=== PATIENT | female | born 1950 | race Caucasian/White ===

== ENCOUNTER 2020-04-10 16:00 | Inpatient (IN) ==
[2020-04-10 17:29] LABS: Basophils # 0.1 10*3/uL (0.0-0.2); Basophils % 0.6 % (0.0-0.8); Eosinophils # 0.2 10*3/uL (0.0-0.87); Eosinophils % 2.5 % (0.00-10.9); Hematocrit 26.8 VOL% (35.7-47.0); Immature Granulocytes % 0.3 %; Immature Granulocytes Absolute 0.02 #; Lymphocytes # 1.3 10*3/uL (1.4-4.0); Lymphocytes % 16.9 % (21.3-54.2); Mean Corpuscular HGB Conc 33.6 GM/DL (32-36); Mean Corpuscular Volume 96.4 FL (87-102); Mean Platelet Volume 10.3 FL (9.6-12.0); Monocytes % 7.7 % (1.7-12.7); Platelet Count 226 T/CUMM (130-400); Red Blood Count 2.78 MC/CUMM (3.8-5.5); Red Cell Distribution Width 13.2 % (9.3-17.3); White Blood Count 7.9 T/CUMM (4-12)
[2020-04-10 17:40] LABS: Calcium 9.2 MG/DL (8.5-10.1); Osmolality,Calculated 316.5 MOS/KG (273-304); Potassium 4.1 MMOL/L (3.5-5.1)
[2020-04-10] MEDS ORDERED: LABETALOL 20 MG/4 ML SYRINGE IV STA (18:50)
[2020-04-10 21:14] LABS: Troponin I < 0.015 NG/ML (0.00-0.045)
[2020-04-10] MEDS ORDERED: GLUCAGON 1 MG VIAL IM PRN (23:14)
[2020-04-10] MEDS: SODIUM CHLORIDE 0.9% 1,000 ML IV SCH (23:24)
[2020-04-10] MEDS: DOCUSATE SODIUM 100 MG CAPSULE PO SCH (23:24)
[2020-04-11] MEDS: INSULIN REGULAR 100 UNIT/ML SUBCUT SCH ×5 (00:14→18:36)
[2020-04-11] MEDS: hydrALAZINE 20 MG/1 ML VIAL IV PRN ×2 (04:51→21:46)
[2020-04-11 06:12] LABS: Basophils # 0.1 10*3/uL (0.0-0.2); Basophils % 0.7 % (0.0-0.8); Eosinophils # 0.2 10*3/uL (0.0-0.87); Eosinophils % 3.1 % (0.00-10.9); Hematocrit 26.1 VOL% (35.7-47.0); Hemoglobin 8.7 GM/DL (12.0-16.0); Immature Granulocytes % 0.3 %; Immature Granulocytes Absolute 0.02 #; Lymphocytes # 1.8 10*3/uL (1.4-4.0); Lymphocytes % 25.9 % (21.3-54.2); Mean Corpuscular HGB Conc 33.3 GM/DL (32-36); Mean Corpuscular Volume 96.7 FL (87-102); Mean Platelet Volume 10.4 FL (9.6-12.0); Monocytes % 10.2 % (1.7-12.7); Neutrophils % 59.8 % (38.7-73.9); Platelet Count 223 T/CUMM (130-400); Red Cell Distribution Width 13.4 % (9.3-17.3); White Blood Count 6.8 T/CUMM (4-12)
[2020-04-11 06:27] LABS: Alanine Aminotransferase 29 U/L (13-56); Albumin 2.7 G/DL (3.4-5.0); Alkaline Phosphatase 161 U/L (45-117); Aspartate Amino Transferase 21 U/L (0-37); Bilirubin,Total < 0.39 MG/DL (0.2-1.0); Blood Urea Nitrogen 81 MG/DL (7-18); Calcium 8.9 MG/DL (8.5-10.1); Carbon Dioxide 14 MMOL/L (21-32); Estimated Glom Filtration Rate 13 ML/MIN; Glucose 268 MG/DL (74-106); HDL Cholesterol 76 MG/DL (40-60); Osmolality,Calculated 311.4 MOS/KG (273-304); Potassium 3.9 MMOL/L (3.5-5.1); Risk Ratio 2.03; Sodium 140 MMOL/L (136-145); Total Protein 6.6 G/DL (6.4-8.3); Triglycerides 84 MG/DL (2-150); VLDL CHOLESTEROL 16.8 MG/DL
[2020-04-11] MEDS ORDERED: DEXTROSE 50% 25 GM/50 ML VIAL IV PRN (08:10)
[2020-04-11] MEDS ORDERED: GLUCAGON 1 MG VIAL IM PRN (08:10)
[2020-04-11 08:15] LABS: Bacteria,Urine Occasional /HPF (Few); Bilirubin,Urine Negative (Negative); Blood, Urine Negative (Negative); Glucose,Urine (UA) >=500 mg/dL (Negative); Ketones,Urine Negative (Negative); Mucus,Urine Occasional /LPF (Occasional); Nitrite,Urine Negative (Negative); Protein,Urine 100 MG/DL; RBC,Urine 5 /HPF (0-4); Squamous Epithelial Cell,Urine Occasional /HPF (0-10); Urine Appearance Slightly Hazy (Clear); Urine Color Yellow (Yellow); Urine Specific Gravity 1.011 (1.001-1.035); Urine Urobilinogen < 2.0 EU/DL (0.2-1.0); WBC,Urine 37 /HPF (0-6)
[2020-04-11] MEDS ORDERED: INSULIN LISPRO 100 UNIT/ML SUBCUT PRN (08:15)
[2020-04-11] MEDS ORDERED: PRIMIDONE 250 MG TABLET PO SCH (09:00)
[2020-04-11] MEDS ORDERED: FUROSEMIDE 40 MG TABLET PO SCH (09:00)
[2020-04-11] MEDS ORDERED: ENOXAPARIN 30 MG/0.3 ML SYRINGE SUBCUT SCH (09:00)
[2020-04-11] MEDS: LEVOTHYROXINE 200 MCG TABLET PO SCH (10:31)
[2020-04-11] MEDS: DOCUSATE SODIUM 100 MG CAPSULE PO SCH ×2 (11:04→21:43)
[2020-04-11] MEDS: PANTOPRAZOLE 40 MG TABLET PO SCH (11:04)
[2020-04-11] MEDS: SODIUM CHLORIDE 0.9% 1,000 ML IV SCH (15:21)
[2020-04-11] MEDS: PRIMIDONE 50 MG TABLET PO SCH ×2 (15:53→21:44)
[2020-04-11] MEDS: ASPIRIN EC 81 MG TABLET PO SCH (16:02)
[2020-04-11] MEDS: CLOPIDOGREL 75 MG TABLET PO SCH (16:03)
[2020-04-11] MEDS: BOSENTAN 125 MG PO SCH (21:42)
[2020-04-11] MEDS: ATORVASTATIN 20 MG TABLET PO SCH (21:45)
[2020-04-12] MEDS: INSULIN REGULAR 100 UNIT/ML SUBCUT SCH ×6 (00:09→20:28)
[2020-04-12] MEDS: SODIUM CHLORIDE 0.9% 1,000 ML IV SCH ×2 (06:02→15:29)
[2020-04-12] MEDS: LEVOTHYROXINE 200 MCG TABLET PO SCH (06:23)
[2020-04-12] MEDS: hydrALAZINE 20 MG/1 ML VIAL IV PRN (06:23)
[2020-04-12 06:25] LABS: Basophils % 0.7 % (0.0-0.8); Eosinophils # 0.2 10*3/uL (0.0-0.87); Eosinophils % 3.7 % (0.00-10.9); Hemoglobin 7.3 GM/DL (12.0-16.0); Immature Granulocytes % 0.5 %; Immature Granulocytes Absolute 0.03 #; Lymphocytes # 1.6 10*3/uL (1.4-4.0); Lymphocytes % 26.3 % (21.3-54.2); Mean Corpuscular HGB Conc 33.2 GM/DL (32-36); Mean Corpuscular Volume 97.3 FL (87-102); Mean Platelet Volume 10.1 FL (9.6-12.0); Monocytes % 11.6 % (1.7-12.7); Neutrophils % 57.2 % (38.7-73.9); Platelet Count 187 T/CUMM (130-400); Red Blood Count 2.26 MC/CUMM (3.8-5.5); Red Cell Distribution Width 13.7 % (9.3-17.3); White Blood Count 5.9 T/CUMM (4-12)
[2020-04-12 06:35] LABS: Calcium 8.6 MG/DL (8.5-10.1); Osmolality,Calculated 314.3 MOS/KG (273-304); Potassium 4.1 MMOL/L (3.5-5.1)
[2020-04-12 07:19] LABS: Band Neutrophils 4 % (0-10); Eosinophils 4 % (0-10); Lymphocytes 27 % (20-55); Metamyelocytes 4 %; Platelet Estimate Normal; Segmented Neutrophils 50 % (50-85); Total Cells Counted 100
[2020-04-12 07:20] LABS: Anisocytosis 1+; Macrocytosis 1+
[2020-04-12] MEDS: CLOPIDOGREL 75 MG TABLET PO SCH (09:21)
[2020-04-12] MEDS: PANTOPRAZOLE 40 MG TABLET PO SCH (09:21)
[2020-04-12] MEDS: ASPIRIN EC 81 MG TABLET PO SCH (09:21)
[2020-04-12] MEDS: PRIMIDONE 50 MG TABLET PO SCH ×3 (09:21→20:27)
[2020-04-12] MEDS: DOCUSATE SODIUM 100 MG CAPSULE PO SCH ×2 (09:21→20:27)
[2020-04-12] MEDS: BOSENTAN 125 MG PO SCH ×3 (09:22→20:27)
[2020-04-12 09:44] LABS: % Iron Saturation 28.8 % (18-50)
[2020-04-12 09:53] LABS: Ferritin 53.5 ng/ml (8-252)
[2020-04-12 10:07] LABS: Folate 6.6 NG/ML (5.4-24.0)
[2020-04-12 14:11] LABS: Basophils # 0.1 10*3/uL (0.0-0.2); Basophils % 0.8 % (0.0-0.8); Eosinophils # 0.3 10*3/uL (0.0-0.87); Eosinophils % 3.9 % (0.00-10.9); Hematocrit 24.5 VOL% (35.7-47.0); Hemoglobin 8.2 GM/DL (12.0-16.0); Immature Granulocytes % 0.6 %; Immature Granulocytes Absolute 0.04 #; Lymphocytes # 1.4 10*3/uL (1.4-4.0); Mean Corpuscular HGB Conc 33.5 GM/DL (32-36); Mean Corpuscular Volume 96.8 FL (87-102); Mean Platelet Volume 10.1 FL (9.6-12.0); Monocytes % 10.7 % (1.7-12.7); Platelet Count 221 T/CUMM (130-400); Red Blood Count 2.53 MC/CUMM (3.8-5.5); Red Cell Distribution Width 13.9 % (9.3-17.3); White Blood Count 6.7 T/CUMM (4-12)
[2020-04-12] MEDS ORDERED: INSULIN REGULAR 100 UNIT/ML SUBCUT ONE (14:31)
[2020-04-12] MEDS: ATORVASTATIN 20 MG TABLET PO SCH (20:28)
[2020-04-13 05:49] LABS: Basophils # 0.1 10*3/uL (0.0-0.2); Eosinophils # 0.3 10*3/uL (0.0-0.87); Eosinophils % 4.3 % (0.00-10.9); Hemoglobin 7.9 GM/DL (12.0-16.0); Immature Granulocytes % 0.6 %; Immature Granulocytes Absolute 0.04 #; Lymphocytes % 29.1 % (21.3-54.2); Mean Corpuscular HGB Conc 32.9 GM/DL (32-36); Mean Corpuscular Volume 99.6 FL (87-102); Mean Platelet Volume 9.9 FL (9.6-12.0); Monocytes % 16.4 % (1.7-12.7); Neutrophils % 48.6 % (38.7-73.9); Platelet Count 234 T/CUMM (130-400); Red Blood Count 2.41 MC/CUMM (3.8-5.5); Red Cell Distribution Width 14.1 % (9.3-17.3); White Blood Count 6.9 T/CUMM (4-12)
[2020-04-13 06:11] LABS: Calcium 8.8 MG/DL (8.5-10.1); Osmolality,Calculated 315.3 MOS/KG (273-304); Potassium 4.5 MMOL/L (3.5-5.1)
[2020-04-13 06:47] LABS: Eosinophils 7 % (0-10); Hypochromasia 2+; Lymphocytes 32 % (20-55); Microcytosis 1+; Ovalocytes Slight; Platelet Estimate Adequate; Segmented Neutrophils 52 % (50-85); Total Cells Counted 100
[2020-04-13 08:27] LABS: Troponin I 0.023 NG/ML (0.00-0.045)
[2020-04-13] MEDS: SODIUM CHLORIDE 0.9% 1,000 ML IV SCH (09:14)
[2020-04-13] MEDS: PANTOPRAZOLE 40 MG TABLET PO SCH (09:15)
[2020-04-13] MEDS: LEVOTHYROXINE 200 MCG TABLET PO SCH (09:15)
[2020-04-13] MEDS: CLOPIDOGREL 75 MG TABLET PO SCH (09:15)
[2020-04-13] MEDS: ASPIRIN EC 81 MG TABLET PO SCH (09:15)
[2020-04-13] MEDS: INSULIN REGULAR 100 UNIT/ML SUBCUT SCH ×4 (09:15→21:46)
[2020-04-13] MEDS: BOSENTAN 125 MG PO SCH ×2 (09:16→21:45)
[2020-04-13] MEDS: PRIMIDONE 50 MG TABLET PO SCH ×3 (09:22→21:45)
[2020-04-13] MEDS: DOCUSATE SODIUM 100 MG CAPSULE PO SCH ×2 (09:22→21:47)
[2020-04-13] MEDS ORDERED: SODIUM CHLORIDE 0.9% 500 ML IV ONE (10:00)
[2020-04-13 11:32] LABS: Troponin I 0.022 NG/ML (0.00-0.045)
[2020-04-13] MEDS: cefTRIAXone 1,000 MG in SYRINGE 1 EACH IV SCH (11:39)
[2020-04-13 13:42] LABS: Troponin I 0.071 NG/ML (0.00-0.045)
[2020-04-13 13:43] LABS: ABG Base Excess -12.6 MMOL/L (-2.5-2.5); ABG HCO3 14.4 MMOL/L (20-26); ABG Oxygen Saturation 99.4 % (95-100); ABG PCO2 30.1 MM HG (35-48); ABG PH 7.259 (7.35-7.45); ABG TCO2 12.9 MMOL/L (23-27)
[2020-04-13] MEDS ORDERED: SODIUM CHLORIDE 0.9% 1,000 ML IV PRN (16:06)
[2020-04-13] MEDS ORDERED: SODIUM CHLORIDE 23.4% CONC INJ 38.5 MEQ, SODIUM BICARB INJ 100 MEQ in STERILE WATER INJ... IV SCH (17:00)
[2020-04-13] MEDS: ATORVASTATIN 20 MG TABLET PO SCH (21:45)
[2020-04-14 00:29] LABS: Basophils # 0.1 10*3/uL (0.0-0.2); Basophils % 0.7 % (0.0-0.8); Eosinophils # 0.2 10*3/uL (0.0-0.87); Eosinophils % 2.3 % (0.00-10.9); Hematocrit 23.7 VOL% (35.7-47.0); Immature Granulocytes % 0.5 %; Immature Granulocytes Absolute 0.04 #; Lymphocytes # 1.7 10*3/uL (1.4-4.0); Lymphocytes % 20.1 % (21.3-54.2); Mean Corpuscular HGB Conc 33.8 GM/DL (32-36); Mean Corpuscular Volume 96.7 FL (87-102); Mean Platelet Volume 9.9 FL (9.6-12.0); Monocytes % 10.7 % (1.7-12.7); Neutrophils % 65.7 % (38.7-73.9); Platelet Count 182 T/CUMM (130-400); Red Blood Count 2.45 MC/CUMM (3.8-5.5); Red Cell Distribution Width 14.8 % (9.3-17.3); White Blood Count 8.4 T/CUMM (4-12)
[2020-04-14 05:52] LABS: Basophils # 0.1 10*3/uL (0.0-0.2); Basophils % 0.7 % (0.0-0.8); Eosinophils # 0.3 10*3/uL (0.0-0.87); Eosinophils % 2.6 % (0.00-10.9); Hematocrit 26.5 VOL% (35.7-47.0); Hemoglobin 8.7 GM/DL (12.0-16.0); Immature Granulocytes % 0.2 %; Immature Granulocytes Absolute 0.02 #; Lymphocytes # 1.9 10*3/uL (1.4-4.0); Lymphocytes % 19.7 % (21.3-54.2); Mean Corpuscular HGB Conc 32.8 GM/DL (32-36); Mean Corpuscular Volume 98.5 FL (87-102); Mean Platelet Volume 10.2 FL (9.6-12.0); Monocytes % 8.1 % (1.7-12.7); Neutrophils % 68.7 % (38.7-73.9); Platelet Count 208 T/CUMM (130-400); Red Blood Count 2.69 MC/CUMM (3.8-5.5); White Blood Count 9.8 T/CUMM (4-12)
[2020-04-14 06:14] LABS: Calcium 8.7 MG/DL (8.5-10.1); Osmolality,Calculated 314.8 MOS/KG (273-304); Potassium 4.6 MMOL/L (3.5-5.1)
[2020-04-14] MEDS: INSULIN LISPRO 100 UNIT/ML SUBCUT SCH ×4 (08:43→21:27)
[2020-04-14] MEDS: PRIMIDONE 50 MG TABLET PO SCH ×3 (08:46→21:28)
[2020-04-14] MEDS: LEVOTHYROXINE 200 MCG TABLET PO SCH (08:46)
[2020-04-14] MEDS: CLOPIDOGREL 75 MG TABLET PO SCH (08:46)
[2020-04-14] MEDS: ASPIRIN EC 81 MG TABLET PO SCH (08:46)
[2020-04-14] MEDS: DOCUSATE SODIUM 100 MG CAPSULE PO SCH ×2 (08:46→21:28)
[2020-04-14] MEDS: BOSENTAN 125 MG PO SCH ×2 (08:47→21:28)
[2020-04-14] MEDS: PANTOPRAZOLE 40 MG TABLET PO SCH (08:55)
[2020-04-14] MEDS: cefTRIAXone 1,000 MG in SYRINGE 1 EACH IV SCH (08:59)
[2020-04-14] MEDS ORDERED: INSULIN GLARGINE 100 UNIT/ML SUBCUT SCH (09:00)
[2020-04-14] MEDS: INSULIN REGULAR 100 UNIT/ML SUBCUT SCH (10:08)
[2020-04-14 15:56] LABS: Amorphous Crystals,Urine Occasional /HPF (Few); Bilirubin,Urine Negative (Negative); Blood, Urine Small mg/dL (Negative); Glucose,Urine (UA) >=500 mg/dL (Negative); Ketones,Urine Negative (Negative); Mucus,Urine Occasional /LPF (Occasional); Nitrite,Urine Negative (Negative); Protein,Urine 100 MG/DL; RBC,Urine 4 /HPF (0-4); Squamous Epithelial Cell,Urine Occasional /HPF (0-10); Urine Appearance Slightly Hazy (Clear); Urine Color Straw (Yellow); Urine Specific Gravity 1.011 (1.001-1.035); Urine Urobilinogen < 2.0 EU/DL (0.2-1.0); WBC,Urine 16 /HPF (0-6)
[2020-04-14 16:01] LABS: Protein/Creatinine Ratio,Urine 2.9 RATIO
[2020-04-14] MEDS: SODIUM BICARB INJ 150 MEQ in DEXTROSE 5% 850 ML IV SCH (16:35)
[2020-04-14] MEDS: ATORVASTATIN 20 MG TABLET PO SCH (21:28)
[2020-04-15] MEDS: hydrALAZINE 20 MG/1 ML VIAL IV PRN (01:07)
[2020-04-15 05:21] LABS: Basophils # 0.1 10*3/uL (0.0-0.2); Basophils % 0.6 % (0.0-0.8); Eosinophils # 0.3 10*3/uL (0.0-0.87); Eosinophils % 3.2 % (0.00-10.9); Hematocrit 24.4 VOL% (35.7-47.0); Hemoglobin 8.4 GM/DL (12.0-16.0); Immature Granulocytes % 0.2 %; Immature Granulocytes Absolute 0.02 #; Lymphocytes # 1.5 10*3/uL (1.4-4.0); Lymphocytes % 17.8 % (21.3-54.2); Mean Corpuscular HGB Conc 34.4 GM/DL (32-36); Mean Corpuscular Volume 95.7 FL (87-102); Mean Platelet Volume 10.7 FL (9.6-12.0); Neutrophils % 69.2 % (38.7-73.9); Platelet Count 187 T/CUMM (130-400); Red Blood Count 2.55 MC/CUMM (3.8-5.5); Red Cell Distribution Width 14.6 % (9.3-17.3); White Blood Count 8.2 T/CUMM (4-12)
[2020-04-15 05:35] LABS: Calcium 8.4 MG/DL (8.5-10.1); Osmolality,Calculated 314.4 MOS/KG (273-304); Potassium 4.2 MMOL/L (3.5-5.1)
[2020-04-15] MEDS: LEVOTHYROXINE 200 MCG TABLET PO SCH (06:15)
[2020-04-15] MEDS: BOSENTAN 125 MG PO SCH ×2 (09:04→21:12)
[2020-04-15] MEDS: INSULIN LISPRO 100 UNIT/ML SUBCUT SCH ×4 (09:09→21:16)
[2020-04-15] MEDS: INSULIN GLARGINE 100 UNIT/ML SUBCUT SCH (09:09)
[2020-04-15] MEDS: DOCUSATE SODIUM 100 MG CAPSULE PO SCH ×2 (09:10→21:12)
[2020-04-15] MEDS: ASPIRIN EC 81 MG TABLET PO SCH (09:10)
[2020-04-15] MEDS: PRIMIDONE 50 MG TABLET PO SCH ×3 (09:10→21:14)
[2020-04-15] MEDS: CLOPIDOGREL 75 MG TABLET PO SCH (09:10)
[2020-04-15] MEDS: PANTOPRAZOLE 40 MG TABLET PO SCH (09:11)
[2020-04-15] MEDS: cefTRIAXone 1,000 MG in SYRINGE 1 EACH IV SCH (12:13)
[2020-04-15] MEDS: SODIUM BICARB INJ 150 MEQ in DEXTROSE 5% 850 ML IV SCH (12:59)
[2020-04-15 13:12] LABS: Myeloperoxidase Antibody < 0.2 U
[2020-04-15] MEDS: ATORVASTATIN 20 MG TABLET PO SCH (21:13)
[2020-04-16 05:55] LABS: Basophils % 0.5 % (0.0-0.8); Eosinophils # 0.2 10*3/uL (0.0-0.87); Eosinophils % 2.6 % (0.00-10.9); Hematocrit 24.8 VOL% (35.7-47.0); Hemoglobin 8.4 GM/DL (12.0-16.0); Immature Granulocytes % 0.2 %; Immature Granulocytes Absolute 0.02 #; Lymphocytes # 1.8 10*3/uL (1.4-4.0); Lymphocytes % 21.7 % (21.3-54.2); Mean Corpuscular HGB Conc 33.9 GM/DL (32-36); Mean Corpuscular Volume 96.5 FL (87-102); Mean Platelet Volume 10.7 FL (9.6-12.0); Monocytes % 10.2 % (1.7-12.7); Neutrophils % 64.8 % (38.7-73.9); Platelet Count 178 T/CUMM (130-400); Red Blood Count 2.57 MC/CUMM (3.8-5.5); Red Cell Distribution Width 14.3 % (9.3-17.3); White Blood Count 8.1 T/CUMM (4-12)
[2020-04-16] MEDS: LEVOTHYROXINE 200 MCG TABLET PO SCH (06:25)
[2020-04-16] MEDS: DEXTROSE 50% 25 GM/50 ML VIAL IV PRN (06:49)
[2020-04-16 07:01] LABS: Hepatitis B Core IgM Quant 0.07 Index; Hepatitis B Surface Ag Quant < 0.10 Index; Hepatitis B Surface Ag Result Negative (Negative); Hepatitis C Virus Ab Quant < 0.02 Index; Hepatitis C Virus Ab Result Negative (Negative)
[2020-04-16] MEDS: INSULIN LISPRO 100 UNIT/ML SUBCUT SCH ×4 (09:27→22:26)
[2020-04-16] MEDS: SODIUM BICARB INJ 150 MEQ in DEXTROSE 5% 850 ML IV SCH (09:29)
[2020-04-16] MEDS: INSULIN GLARGINE 100 UNIT/ML SUBCUT SCH (09:31)
[2020-04-16] MEDS: cefTRIAXone 1,000 MG in SYRINGE 1 EACH IV SCH (09:31)
[2020-04-16] MEDS: DOCUSATE SODIUM 100 MG CAPSULE PO SCH ×2 (09:32→22:24)
[2020-04-16] MEDS: CLOPIDOGREL 75 MG TABLET PO SCH (09:32)
[2020-04-16] MEDS: PANTOPRAZOLE 40 MG TABLET PO SCH (09:32)
[2020-04-16] MEDS: ASPIRIN EC 81 MG TABLET PO SCH (09:32)
[2020-04-16] MEDS: PRIMIDONE 50 MG TABLET PO SCH ×3 (09:33→22:24)
[2020-04-16] MEDS: BOSENTAN 125 MG PO SCH ×2 (09:34→22:25)
[2020-04-16] MEDS: ATORVASTATIN 20 MG TABLET PO SCH (22:24)
[2020-04-17] MEDS: SODIUM BICARB INJ 150 MEQ in DEXTROSE 5% 850 ML IV SCH (05:08)
[2020-04-17 05:59] LABS: Basophils % 0.6 % (0.0-0.8); Eosinophils # 0.2 10*3/uL (0.0-0.87); Eosinophils % 3.1 % (0.00-10.9); Hematocrit 24.4 VOL% (35.7-47.0); Hemoglobin 8.2 GM/DL (12.0-16.0); Immature Granulocytes % 0.3 %; Immature Granulocytes Absolute 0.02 #; Lymphocytes # 1.4 10*3/uL (1.4-4.0); Lymphocytes % 19.5 % (21.3-54.2); Mean Corpuscular HGB Conc 33.6 GM/DL (32-36); Mean Corpuscular Volume 96.8 FL (87-102); Mean Platelet Volume 10.7 FL (9.6-12.0); Monocytes % 10.2 % (1.7-12.7); Neutrophils % 66.3 % (38.7-73.9); Platelet Count 163 T/CUMM (130-400); Red Blood Count 2.52 MC/CUMM (3.8-5.5); Red Cell Distribution Width 14.1 % (9.3-17.3)
[2020-04-17] MEDS: LEVOTHYROXINE 200 MCG TABLET PO SCH (06:07)
[2020-04-17 06:21] LABS: Calcium 7.9 MG/DL (8.5-10.1); Osmolality,Calculated 315.3 MOS/KG (273-304)
[2020-04-17] MEDS: INSULIN LISPRO 100 UNIT/ML SUBCUT SCH ×4 (08:19→22:20)
[2020-04-17] MEDS: INSULIN GLARGINE 100 UNIT/ML SUBCUT SCH (08:19)
[2020-04-17] MEDS: CLOPIDOGREL 75 MG TABLET PO SCH (09:31)
[2020-04-17] MEDS: DOCUSATE SODIUM 100 MG CAPSULE PO SCH ×2 (09:31→22:21)
[2020-04-17] MEDS: ASPIRIN EC 81 MG TABLET PO SCH (09:31)
[2020-04-17] MEDS: PRIMIDONE 50 MG TABLET PO SCH ×3 (09:32→22:29)
[2020-04-17] MEDS: PANTOPRAZOLE 40 MG TABLET PO SCH (09:32)
[2020-04-17] MEDS: BOSENTAN 125 MG PO SCH ×2 (09:33→22:21)
[2020-04-17] MEDS: cefTRIAXone 1,000 MG in SYRINGE 1 EACH IV SCH (09:33)
[2020-04-17] MEDS: hydrALAZINE 10 MG TABLET PO SCH ×3 (09:37→22:21)
[2020-04-17] MEDS: ATORVASTATIN 20 MG TABLET PO SCH (22:20)
[2020-04-18] MEDS: SODIUM BICARB INJ 150 MEQ in DEXTROSE 5% 850 ML IV SCH (02:23)
[2020-04-18 05:52] LABS: Calcium 7.7 MG/DL (8.5-10.1); Potassium 4.3 MMOL/L (3.5-5.1)
[2020-04-18 06:03] LABS: Basophils # 0.1 10*3/uL (0.0-0.2); Eosinophils # 0.2 10*3/uL (0.0-0.87); Hematocrit 23.2 VOL% (35.7-47.0); Hemoglobin 7.6 GM/DL (12.0-16.0); Immature Granulocytes % 0.2 %; Immature Granulocytes Absolute 0.01 #; Lymphocytes # 1.7 10*3/uL (1.4-4.0); Lymphocytes % 27.6 % (21.3-54.2); Mean Corpuscular HGB Conc 32.8 GM/DL (32-36); Mean Corpuscular Volume 97.9 FL (87-102); Mean Platelet Volume 10.7 FL (9.6-12.0); Neutrophils % 56.2 % (38.7-73.9); Platelet Count 175 T/CUMM (130-400); Red Blood Count 2.37 MC/CUMM (3.8-5.5); Red Cell Distribution Width 13.7 % (9.3-17.3); White Blood Count 6.2 T/CUMM (4-12)
[2020-04-18] MEDS: LEVOTHYROXINE 200 MCG TABLET PO SCH (06:23)
[2020-04-18 08:34] LABS: Eosinophils 3 % (0-10); Lymphocytes 18 % (20-55); Platelet Estimate Adequate; Polychromasia Slight; Segmented Neutrophils 75 % (50-85); Total Cells Counted 100
[2020-04-18] MEDS ORDERED: EPOETIN ALFA 2,000 UNIT/1 ML VIAL SUBCUT SCH (09:00)
[2020-04-18] MEDS: hydrALAZINE 10 MG TABLET PO SCH ×3 (09:10→21:48)
[2020-04-18] MEDS: ASPIRIN EC 81 MG TABLET PO SCH (09:10)
[2020-04-18] MEDS: DOCUSATE SODIUM 100 MG CAPSULE PO SCH ×2 (09:11→21:48)
[2020-04-18] MEDS: INSULIN GLARGINE 100 UNIT/ML SUBCUT SCH (09:11)
[2020-04-18] MEDS: CLOPIDOGREL 75 MG TABLET PO SCH (09:11)
[2020-04-18] MEDS: PANTOPRAZOLE 40 MG TABLET PO SCH (09:11)
[2020-04-18] MEDS: INSULIN LISPRO 100 UNIT/ML SUBCUT SCH ×4 (09:12→21:47)
[2020-04-18] MEDS: BOSENTAN 125 MG PO SCH ×2 (09:13→21:49)
[2020-04-18] MEDS: cefTRIAXone 1,000 MG in SYRINGE 1 EACH IV SCH (09:16)
[2020-04-18] MEDS: PRIMIDONE 50 MG TABLET PO SCH ×3 (12:32→21:48)
[2020-04-18] MEDS: EPOETIN ALFA-EPBX 2,000 UNIT/ML VIAL SUBCUT SCH (14:53)
[2020-04-18] MEDS ORDERED: SODIUM CHLORIDE 0.9% 1,000 ML IV PRN (20:53)
[2020-04-18] MEDS: ATORVASTATIN 20 MG TABLET PO SCH (21:48)
[2020-04-19] MEDS: ACETAMINOPHEN 325 MG TABLET PO PRN (02:10)
[2020-04-19] MEDS: INSULIN LISPRO 100 UNIT/ML SUBCUT SCH ×4 (08:38→21:29)
[2020-04-19] MEDS: PANTOPRAZOLE 40 MG TABLET PO SCH (09:22)
[2020-04-19] MEDS: DOCUSATE SODIUM 100 MG CAPSULE PO SCH ×2 (09:22→21:23)
[2020-04-19] MEDS: LEVOTHYROXINE 200 MCG TABLET PO SCH (09:22)
[2020-04-19] MEDS: ASPIRIN EC 81 MG TABLET PO SCH (09:22)
[2020-04-19] MEDS: PRIMIDONE 50 MG TABLET PO SCH ×3 (09:22→21:43)
[2020-04-19] MEDS: hydrALAZINE 10 MG TABLET PO SCH ×3 (09:22→21:23)
[2020-04-19] MEDS: CLOPIDOGREL 75 MG TABLET PO SCH (09:23)
[2020-04-19] MEDS: BOSENTAN 125 MG PO SCH ×2 (09:23→21:30)
[2020-04-19] MEDS: cefTRIAXone 1,000 MG in SYRINGE 1 EACH IV SCH (09:23)
[2020-04-19] MEDS: INSULIN GLARGINE 100 UNIT/ML SUBCUT SCH (09:23)
[2020-04-19 09:46] LABS: Basophils # 0.1 10*3/uL (0.0-0.2); Basophils % 1.2 % (0.0-0.8); Eosinophils # 0.2 10*3/uL (0.0-0.87); Eosinophils % 2.7 % (0.00-10.9); Hematocrit 29.8 VOL% (35.7-47.0); Hemoglobin 9.7 GM/DL (12.0-16.0); Immature Granulocytes % 0.4 %; Immature Granulocytes Absolute 0.03 #; Lymphocytes # 1.6 10*3/uL (1.4-4.0); Lymphocytes % 23.2 % (21.3-54.2); Mean Corpuscular HGB Conc 32.6 GM/DL (32-36); Mean Corpuscular Volume 97.7 FL (87-102); Mean Platelet Volume 10.5 FL (9.6-12.0); Monocytes % 9.7 % (1.7-12.7); Neutrophils % 62.8 % (38.7-73.9); Platelet Count 207 T/CUMM (130-400); Red Blood Count 3.05 MC/CUMM (3.8-5.5); Red Cell Distribution Width 13.8 % (9.3-17.3); White Blood Count 6.8 T/CUMM (4-12)
[2020-04-19 10:09] LABS: Calcium 8.1 MG/DL (8.5-10.1); Osmolality,Calculated 316.5 MOS/KG (273-304); Potassium 4.9 MMOL/L (3.5-5.1)
[2020-04-19 11:09] LABS: Band Neutrophils 2 % (0-10); Eosinophils 5 % (0-10); Lymphocytes 21 % (20-55); Platelet Estimate Normal; Segmented Neutrophils 62 % (50-85); Total Cells Counted 100
[2020-04-19 11:10] LABS: Anisocytosis 1+; Macrocytosis Slight
[2020-04-19] MEDS: ATORVASTATIN 20 MG TABLET PO SCH (21:23)
[2020-04-20] MEDS: ACETAMINOPHEN 325 MG TABLET PO PRN ×2 (00:01→17:32)
[2020-04-20 05:56] LABS: Basophils % 0.7 % (0.0-0.8); Eosinophils # 0.2 10*3/uL (0.0-0.87); Eosinophils % 3.2 % (0.00-10.9); Hematocrit 27.8 VOL% (35.7-47.0); Hemoglobin 8.8 GM/DL (12.0-16.0); Immature Granulocytes % 0.2 %; Immature Granulocytes Absolute 0.01 #; Lymphocytes # 1.2 10*3/uL (1.4-4.0); Lymphocytes % 19.5 % (21.3-54.2); Mean Corpuscular HGB Conc 31.7 GM/DL (32-36); Mean Corpuscular Volume 98.9 FL (87-102); Monocytes % 11.2 % (1.7-12.7); Neutrophils % 65.2 % (38.7-73.9); Platelet Count 203 T/CUMM (130-400); Red Blood Count 2.81 MC/CUMM (3.8-5.5); Red Cell Distribution Width 13.6 % (9.3-17.3)
[2020-04-20 06:25] LABS: Calcium 7.7 MG/DL (8.5-10.1); Osmolality,Calculated 313.3 MOS/KG (273-304); Potassium 4.9 MMOL/L (3.5-5.1)
[2020-04-20] MEDS: LEVOTHYROXINE 200 MCG TABLET PO SCH (08:54)
[2020-04-20] MEDS: hydrALAZINE 25 MG TABLET PO SCH ×3 (08:55→21:00)
[2020-04-20] MEDS: BOSENTAN 125 MG PO SCH ×2 (08:55→21:00)
[2020-04-20] MEDS: ASPIRIN EC 81 MG TABLET PO SCH (08:55)
[2020-04-20] MEDS: CLOPIDOGREL 75 MG TABLET PO SCH (08:55)
[2020-04-20] MEDS: DOCUSATE SODIUM 100 MG CAPSULE PO SCH ×2 (08:55→21:00)
[2020-04-20] MEDS: PANTOPRAZOLE 40 MG TABLET PO SCH (08:55)
[2020-04-20] MEDS: INSULIN GLARGINE 100 UNIT/ML SUBCUT SCH (08:55)
[2020-04-20] MEDS: PRIMIDONE 50 MG TABLET PO SCH ×3 (08:55→21:00)
[2020-04-20] MEDS: INSULIN LISPRO 100 UNIT/ML SUBCUT SCH ×4 (08:56→21:07)
[2020-04-20] MEDS: cefTRIAXone 1,000 MG in SYRINGE 1 EACH IV SCH (09:01)
[2020-04-20] MEDS ORDERED: FUROSEMIDE 40 MG/4 ML VIAL IV ONE (13:20)
[2020-04-20] MEDS: ONDANSETRON 4 MG/2 ML VIAL IV PRN (17:32)
[2020-04-20] MEDS: hydrALAZINE 20 MG/1 ML VIAL IV PRN (17:33)
[2020-04-20] MEDS ORDERED: PROMETHAZINE 25 MG/1 ML VIAL IM PRN (19:28)
[2020-04-20] MEDS: traMADol 50 MG TABLET PO PRN (20:59)
[2020-04-20] MEDS: ATORVASTATIN 20 MG TABLET PO SCH (21:00)
[2020-04-21] MEDS: ONDANSETRON 4 MG/2 ML VIAL IV PRN ×2 (02:50→10:31)
[2020-04-21] MEDS: hydrALAZINE 20 MG/1 ML VIAL IV PRN (02:53)
[2020-04-21] MEDS: traMADol 50 MG TABLET PO PRN (04:26)
[2020-04-21 05:44] LABS: Basophils # 0.1 10*3/uL (0.0-0.2); Basophils % 0.6 % (0.0-0.8); Eosinophils # 0.1 10*3/uL (0.0-0.87); Eosinophils % 1.8 % (0.00-10.9); Hematocrit 28.1 VOL% (35.7-47.0); Hemoglobin 9.1 GM/DL (12.0-16.0); Immature Granulocytes % 0.1 %; Immature Granulocytes Absolute 0.01 #; Lymphocytes # 1.2 10*3/uL (1.4-4.0); Lymphocytes % 15.5 % (21.3-54.2); Mean Corpuscular HGB Conc 32.4 GM/DL (32-36); Mean Corpuscular Volume 98.6 FL (87-102); Mean Platelet Volume 10.6 FL (9.6-12.0); Monocytes % 9.5 % (1.7-12.7); Neutrophils % 72.5 % (38.7-73.9); Platelet Count 233 T/CUMM (130-400); Red Blood Count 2.85 MC/CUMM (3.8-5.5); Red Cell Distribution Width 13.4 % (9.3-17.3); White Blood Count 7.9 T/CUMM (4-12)
[2020-04-21 06:19] LABS: Calcium 7.8 MG/DL (8.5-10.1); Osmolality,Calculated 313.5 MOS/KG (273-304); Potassium 5.4 MMOL/L (3.5-5.1)
[2020-04-21] MEDS: LEVOTHYROXINE 200 MCG TABLET PO SCH (06:29)
[2020-04-21] MEDS: LIDOCAINE 5% PATCH TRANSDERM SCH (10:16)
[2020-04-21] MEDS: DOCUSATE SODIUM 100 MG CAPSULE PO SCH ×2 (10:20→22:33)
[2020-04-21] MEDS: hydrALAZINE 25 MG TABLET PO SCH ×3 (10:20→22:34)
[2020-04-21] MEDS: CLOPIDOGREL 75 MG TABLET PO SCH (10:20)
[2020-04-21] MEDS: ASPIRIN EC 81 MG TABLET PO SCH (10:20)
[2020-04-21] MEDS: PANTOPRAZOLE 40 MG TABLET PO SCH (10:20)
[2020-04-21] MEDS: BOSENTAN 125 MG PO SCH ×2 (10:21→22:33)
[2020-04-21] MEDS: cefTRIAXone 1,000 MG in SYRINGE 1 EACH IV SCH (10:22)
[2020-04-21] MEDS: INSULIN GLARGINE 100 UNIT/ML SUBCUT SCH (10:22)
[2020-04-21] MEDS: INSULIN LISPRO 100 UNIT/ML SUBCUT SCH ×4 (10:32→22:34)
[2020-04-21] MEDS: PRIMIDONE 50 MG TABLET PO SCH ×3 (11:14→22:33)
[2020-04-21] MEDS: EPOETIN ALFA-EPBX 2,000 UNIT/ML VIAL SUBCUT SCH (12:08)
[2020-04-21] MEDS ORDERED: FUROSEMIDE 40 MG/4 ML VIAL IV ONE (14:51)
[2020-04-21 21:25] LABS: Bacteria,Urine Occasional /HPF (Few); Bilirubin,Urine Negative (Negative); Blood, Urine Moderate mg/dL (Negative); Glucose,Urine (UA) >=500 mg/dL (Negative); Ketones,Urine Negative (Negative); Nitrite,Urine Negative (Negative); Protein,Urine 100 MG/DL; RBC,Urine 48 /HPF (0-4); Squamous Epithelial Cell,Urine Occasional /HPF (0-10); Urine Appearance CLEAR (Clear); Urine Color Straw (Yellow); Urine Specific Gravity 1.009 (1.001-1.035); Urine Urobilinogen < 2.0 EU/DL (0.2-1.0); WBC,Urine 5 /HPF (0-6)
[2020-04-21] MEDS: ATORVASTATIN 20 MG TABLET PO SCH (22:34)
[2020-04-22] MEDS: ACETAMINOPHEN 325 MG TABLET PO PRN (04:25)
[2020-04-22] MEDS: LEVOTHYROXINE 200 MCG TABLET PO SCH (06:01)
[2020-04-22 06:17] LABS: Basophils # 0.1 10*3/uL (0.0-0.2); Basophils % 0.8 % (0.0-0.8); Eosinophils # 0.2 10*3/uL (0.0-0.87); Eosinophils % 2.4 % (0.00-10.9); Hematocrit 28.4 VOL% (35.7-47.0); Hemoglobin 9.3 GM/DL (12.0-16.0); Immature Granulocytes % 0.5 %; Immature Granulocytes Absolute 0.04 #; Lymphocytes # 1.7 10*3/uL (1.4-4.0); Lymphocytes % 19.7 % (21.3-54.2); Mean Corpuscular HGB Conc 32.7 GM/DL (32-36); Mean Corpuscular Volume 98.3 FL (87-102); Mean Platelet Volume 10.4 FL (9.6-12.0); Monocytes % 10.6 % (1.7-12.7); Platelet Count 233 T/CUMM (130-400); Red Blood Count 2.89 MC/CUMM (3.8-5.5); Red Cell Distribution Width 13.5 % (9.3-17.3); White Blood Count 8.7 T/CUMM (4-12)
[2020-04-22 06:35] LABS: Calcium 8.2 MG/DL (8.5-10.1); Osmolality,Calculated 307.5 MOS/KG (273-304); Potassium 5.8 MMOL/L (3.5-5.1)
[2020-04-22 06:55] LABS: Anisocytosis 1+; Band Neutrophils 3 % (0-10); Eosinophils 3 % (0-10); Lymphocytes 23 % (20-55); Platelet Estimate Normal; Segmented Neutrophils 63 % (50-85); Total Cells Counted 100
[2020-04-22 06:56] LABS: Macrocytosis 1+
[2020-04-22] MEDS: DEXTROSE 50% 25 GM/50 ML VIAL IV PRN (08:25)
[2020-04-22] MEDS: cefTRIAXone 1,000 MG in SYRINGE 1 EACH IV SCH (10:12)
[2020-04-22] MEDS: LIDOCAINE 5% PATCH TRANSDERM SCH (10:17)
[2020-04-22] MEDS: INSULIN LISPRO 100 UNIT/ML SUBCUT SCH ×4 (10:20→22:28)
[2020-04-22] MEDS: INSULIN GLARGINE 100 UNIT/ML SUBCUT SCH (10:25)
[2020-04-22] MEDS ORDERED: HEPARIN 5,000 UNIT/1 ML VIAL ONE (11:48)
[2020-04-22] MEDS ORDERED: BUPIVACAINE 0.5% 50 ML VIAL ONE (11:48)
[2020-04-22] MEDS ORDERED: LIDOCAINE 2%/EPI 20 ML VIAL ONE (11:49)
[2020-04-22] MEDS ORDERED: TISSUE ADHESIVE 1 EACH APPLICATOR TOP ONE (11:50)
[2020-04-22] MEDS ORDERED: LIDOCAINE MPF 1% /EPI 30 ML VIAL ONE (12:29)
[2020-04-22] MEDS ORDERED: fentaNYL 100 MCG/2 ML VIAL ONE (12:51)
[2020-04-22] MEDS ORDERED: ceFAZolin 1,000 MG VIAL ONE (13:03)
[2020-04-22] MEDS ORDERED: propofoL 200 MG/20 ML VIAL IV ONE (13:06)
[2020-04-22] MEDS ORDERED: LIDOCAINE 2% 5 ML VIAL ONE (13:06)
[2020-04-22] MEDS ORDERED: SODIUM CHLORIDE 0.9% 250 ML IV ONE (13:20)
[2020-04-22] MEDS: DOCUSATE SODIUM 100 MG CAPSULE PO SCH ×2 (15:01→21:48)
[2020-04-22] MEDS: BOSENTAN 125 MG PO SCH ×2 (15:01→21:49)
[2020-04-22] MEDS: PRIMIDONE 50 MG TABLET PO SCH ×3 (15:02→21:49)
[2020-04-22] MEDS: CLOPIDOGREL 75 MG TABLET PO SCH (17:55)
[2020-04-22] MEDS: ASPIRIN EC 81 MG TABLET PO SCH (17:55)
[2020-04-22] MEDS: PANTOPRAZOLE 40 MG TABLET PO SCH (17:56)
[2020-04-22] MEDS ORDERED: HEPARIN 10,000 UNIT/10 ML VIAL IV SCH (19:30)
[2020-04-22] MEDS: ATORVASTATIN 20 MG TABLET PO SCH (21:49)
[2020-04-23] MEDS: ACETAMINOPHEN 325 MG TABLET PO PRN (04:04)
[2020-04-23] MEDS ORDERED: diphenhydrAMINE CAP 25 MG CAPSULE PO PRN (05:52)
[2020-04-23 06:03] LABS: Basophils # 0.1 10*3/uL (0.0-0.2); Basophils % 0.9 % (0.0-0.8); Eosinophils # 0.2 10*3/uL (0.0-0.87); Eosinophils % 2.6 % (0.00-10.9); Hematocrit 28.5 VOL% (35.7-47.0); Hemoglobin 9.1 GM/DL (12.0-16.0); Immature Granulocytes % 0.4 %; Immature Granulocytes Absolute 0.03 #; Lymphocytes # 1.2 10*3/uL (1.4-4.0); Lymphocytes % 16.9 % (21.3-54.2); Mean Corpuscular HGB Conc 31.9 GM/DL (32-36); Mean Corpuscular Volume 99.7 FL (87-102); Monocytes % 12.4 % (1.7-12.7); Neutrophils % 66.8 % (38.7-73.9); Platelet Count 203 T/CUMM (130-400); Red Blood Count 2.86 MC/CUMM (3.8-5.5); Red Cell Distribution Width 13.3 % (9.3-17.3); White Blood Count 6.9 T/CUMM (4-12)
[2020-04-23 06:12] LABS: Calcium 8.1 MG/DL (8.5-10.1); Osmolality,Calculated 307.5 MOS/KG (273-304); Potassium 5.3 MMOL/L (3.5-5.1)
[2020-04-23] MEDS: ASPIRIN EC 81 MG TABLET PO SCH (09:00)
[2020-04-23] MEDS: traMADol 50 MG TABLET PO PRN (09:01)
[2020-04-23] MEDS: CLOPIDOGREL 75 MG TABLET PO SCH (09:01)
[2020-04-23] MEDS: PRIMIDONE 50 MG TABLET PO SCH ×3 (09:01→21:57)
[2020-04-23] MEDS: LEVOTHYROXINE 200 MCG TABLET PO SCH (09:01)
[2020-04-23] MEDS: DOCUSATE SODIUM 100 MG CAPSULE PO SCH ×2 (09:01→21:40)
[2020-04-23] MEDS: PANTOPRAZOLE 40 MG TABLET PO SCH (09:02)
[2020-04-23] MEDS: BOSENTAN 125 MG PO SCH ×2 (09:04→21:58)
[2020-04-23] MEDS: INSULIN LISPRO 100 UNIT/ML SUBCUT SCH ×4 (09:05→21:41)
[2020-04-23] MEDS: cefTRIAXone 1,000 MG in SYRINGE 1 EACH IV SCH (09:06)
[2020-04-23] MEDS: INSULIN GLARGINE 100 UNIT/ML SUBCUT SCH (09:06)
[2020-04-23] MEDS: LIDOCAINE 5% PATCH TRANSDERM SCH (09:08)
[2020-04-23] MEDS: EPOETIN ALFA-EPBX 2,000 UNIT/ML VIAL SUBCUT SCH (15:29)
[2020-04-23] MEDS: ATORVASTATIN 20 MG TABLET PO SCH (21:33)
[2020-04-24 07:10] LABS: Basophils # 0.1 10*3/uL (0.0-0.2); Basophils % 0.8 % (0.0-0.8); Eosinophils # 0.2 10*3/uL (0.0-0.87); Hematocrit 27.1 VOL% (35.7-47.0); Hemoglobin 8.3 GM/DL (12.0-16.0); Immature Granulocytes % 0.3 %; Immature Granulocytes Absolute 0.02 #; Lymphocytes # 1.6 10*3/uL (1.4-4.0); Lymphocytes % 25.5 % (21.3-54.2); Mean Corpuscular HGB Conc 30.6 GM/DL (32-36); Mean Corpuscular Volume 103.4 FL (87-102); Mean Platelet Volume 10.9 FL (9.6-12.0); Monocytes % 15.2 % (1.7-12.7); Neutrophils % 55.2 % (38.7-73.9); Platelet Count 197 T/CUMM (130-400); Red Blood Count 2.62 MC/CUMM (3.8-5.5); Red Cell Distribution Width 13.1 % (9.3-17.3); White Blood Count 6.4 T/CUMM (4-12)
[2020-04-24] MEDS: LEVOTHYROXINE 200 MCG TABLET PO SCH (07:17)
[2020-04-24 07:34] LABS: Eosinophils 4 % (0-10); Hypochromasia 1+; Lymphocytes 28 % (20-55); Segmented Neutrophils 61 % (50-85); Total Cells Counted 100
[2020-04-24 07:35] LABS: Macrocytosis 1+; Platelet Estimate Adequate
[2020-04-24 07:44] LABS: Calcium 7.7 MG/DL (8.5-10.1)
[2020-04-24] MEDS: INSULIN LISPRO 100 UNIT/ML SUBCUT SCH ×4 (08:36→23:04)
[2020-04-24] MEDS: PRIMIDONE 50 MG TABLET PO SCH ×3 (08:37→23:04)
[2020-04-24] MEDS: ASPIRIN EC 81 MG TABLET PO SCH (08:38)
[2020-04-24] MEDS: DOCUSATE SODIUM 100 MG CAPSULE PO SCH ×2 (08:38→23:03)
[2020-04-24] MEDS: BOSENTAN 125 MG PO SCH ×2 (08:38→23:04)
[2020-04-24] MEDS: INSULIN GLARGINE 100 UNIT/ML SUBCUT SCH (08:38)
[2020-04-24] MEDS: CLOPIDOGREL 75 MG TABLET PO SCH (08:38)
[2020-04-24] MEDS: PANTOPRAZOLE 40 MG TABLET PO SCH (08:38)
[2020-04-24] MEDS: LIDOCAINE 5% PATCH TRANSDERM SCH (08:39)
[2020-04-24] MEDS: cefTRIAXone 1,000 MG in SYRINGE 1 EACH IV SCH (09:00)
[2020-04-24] MEDS: ATORVASTATIN 20 MG TABLET PO SCH (23:04)
[2020-04-25 06:18] LABS: Basophils # 0.1 10*3/uL (0.0-0.2); Basophils % 1.1 % (0.0-0.8); Eosinophils # 0.2 10*3/uL (0.0-0.87); Eosinophils % 2.4 % (0.00-10.9); Hematocrit 28.5 VOL% (35.7-47.0); Immature Granulocytes % 0.6 %; Immature Granulocytes Absolute 0.04 #; Lymphocytes # 1.5 10*3/uL (1.4-4.0); Lymphocytes % 22.1 % (21.3-54.2); Mean Corpuscular HGB Conc 31.6 GM/DL (32-36); Mean Corpuscular Volume 99.7 FL (87-102); Mean Platelet Volume 10.8 FL (9.6-12.0); Monocytes % 12.7 % (1.7-12.7); Neutrophils % 61.1 % (38.7-73.9); Platelet Count 201 T/CUMM (130-400); Red Blood Count 2.86 MC/CUMM (3.8-5.5); White Blood Count 6.6 T/CUMM (4-12)
[2020-04-25] MEDS: LEVOTHYROXINE 200 MCG TABLET PO SCH (06:34)
[2020-04-25 06:42] LABS: Hypochromasia 1+; Microcytosis 1+; Platelet Estimate Adequate
[2020-04-25] MEDS: DOCUSATE SODIUM 100 MG CAPSULE PO SCH ×2 (09:21→20:44)
[2020-04-25] MEDS: CLOPIDOGREL 75 MG TABLET PO SCH (09:21)
[2020-04-25] MEDS: ASPIRIN EC 81 MG TABLET PO SCH (09:21)
[2020-04-25] MEDS: PANTOPRAZOLE 40 MG TABLET PO SCH (09:22)
[2020-04-25] MEDS: BOSENTAN 125 MG PO SCH ×2 (09:22→20:46)
[2020-04-25] MEDS: INSULIN GLARGINE 100 UNIT/ML SUBCUT SCH (09:29)
[2020-04-25] MEDS: LIDOCAINE 5% PATCH TRANSDERM SCH (09:30)
[2020-04-25] MEDS: EPOETIN ALFA-EPBX 2,000 UNIT/ML VIAL SUBCUT SCH (09:35)
[2020-04-25] MEDS: INSULIN LISPRO 100 UNIT/ML SUBCUT SCH ×4 (09:36→20:45)
[2020-04-25] MEDS: PRIMIDONE 50 MG TABLET PO SCH ×3 (09:37→20:43)
[2020-04-25] MEDS: cefTRIAXone 1,000 MG in SYRINGE 1 EACH IV SCH (10:51)
[2020-04-25 12:45] LABS: Basophils % 0.6 % (0.0-0.8); Eosinophils # 0.1 10*3/uL (0.0-0.87); Eosinophils % 1.7 % (0.00-10.9); Hematocrit 33.1 VOL% (35.7-47.0); Hemoglobin 10.1 GM/DL (12.0-16.0); Immature Granulocytes % 0.6 %; Immature Granulocytes Absolute 0.04 #; Lymphocytes # 1.3 10*3/uL (1.4-4.0); Lymphocytes % 19.2 % (21.3-54.2); Mean Corpuscular HGB Conc 30.5 GM/DL (32-36); Mean Corpuscular Volume 103.8 FL (87-102); Monocytes % 6.5 % (1.7-12.7); Neutrophils % 71.4 % (38.7-73.9); Platelet Count 251 T/CUMM (130-400); Red Blood Count 3.19 MC/CUMM (3.8-5.5); White Blood Count 6.9 T/CUMM (4-12)
[2020-04-25 14:19] LABS: Calcium 8.3 MG/DL (8.5-10.1); Osmolality,Calculated 295.7 MOS/KG (273-304); Potassium 4.5 MMOL/L (3.5-5.1)
[2020-04-25] MEDS: hydrALAZINE 20 MG/1 ML VIAL IV PRN (18:32)
[2020-04-25] MEDS: ATORVASTATIN 20 MG TABLET PO SCH (20:44)
[2020-04-26] MEDS: LEVOTHYROXINE 200 MCG TABLET PO SCH (06:27)
[2020-04-26 08:38] LABS: Basophils # 0.1 10*3/uL (0.0-0.2); Basophils % 0.7 % (0.0-0.8); Eosinophils # 0.2 10*3/uL (0.0-0.87); Eosinophils % 2.8 % (0.00-10.9); Hematocrit 32.2 VOL% (35.7-47.0); Hemoglobin 9.9 GM/DL (12.0-16.0); Immature Granulocytes % 0.5 %; Immature Granulocytes Absolute 0.04 #; Lymphocytes # 2.7 10*3/uL (1.4-4.0); Lymphocytes % 31.8 % (21.3-54.2); Mean Corpuscular HGB Conc 30.7 GM/DL (32-36); Mean Corpuscular Volume 102.9 FL (87-102); Mean Platelet Volume 10.4 FL (9.6-12.0); Monocytes % 9.4 % (1.7-12.7); Neutrophils % 54.8 % (38.7-73.9); Platelet Count 304 T/CUMM (130-400); Red Blood Count 3.13 MC/CUMM (3.8-5.5); White Blood Count 8.6 T/CUMM (4-12)
[2020-04-26 08:57] LABS: Calcium 8.3 MG/DL (8.5-10.1); Osmolality,Calculated 288.7 MOS/KG (273-304); Potassium 4.6 MMOL/L (3.5-5.1)
[2020-04-26 08:59] LABS: Atypical Lymphocytes Few; Band Neutrophils 1 % (0-10); Eosinophils 3 % (0-10); Hypochromasia 1+; Lymphocytes 25 % (20-55); Microcytosis 1+; Segmented Neutrophils 62 % (50-85); Total Cells Counted 100
[2020-04-26 09:00] LABS: Platelet Estimate Normal
[2020-04-26] MEDS: INSULIN GLARGINE 100 UNIT/ML SUBCUT SCH (10:16)
[2020-04-26] MEDS: cefTRIAXone 1,000 MG in SYRINGE 1 EACH IV SCH (10:17)
[2020-04-26] MEDS: LIDOCAINE 5% PATCH TRANSDERM SCH (10:20)
[2020-04-26] MEDS: INSULIN LISPRO 100 UNIT/ML SUBCUT SCH ×4 (11:30→21:12)
[2020-04-26] MEDS: PRIMIDONE 50 MG TABLET PO SCH ×3 (13:46→20:16)
[2020-04-26] MEDS: DOCUSATE SODIUM 100 MG CAPSULE PO SCH ×2 (15:15→20:16)
[2020-04-26] MEDS: BOSENTAN 125 MG PO SCH ×2 (15:16→20:17)
[2020-04-26] MEDS: PANTOPRAZOLE 40 MG TABLET PO SCH (16:47)
[2020-04-26] MEDS: ASPIRIN EC 81 MG TABLET PO SCH (16:47)
[2020-04-26] MEDS: CLOPIDOGREL 75 MG TABLET PO SCH (16:48)
[2020-04-26] MEDS: cloNIDine 0.1 MG TABLET PO SCH (20:15)
[2020-04-26] MEDS: ATORVASTATIN 20 MG TABLET PO SCH (20:16)
[2020-04-27] MEDS: LEVOTHYROXINE 200 MCG TABLET PO SCH (06:14)
[2020-04-27 08:15] LABS: Basophils # 0.1 10*3/uL (0.0-0.2); Basophils % 0.8 % (0.0-0.8); Eosinophils # 0.2 10*3/uL (0.0-0.87); Eosinophils % 2.1 % (0.00-10.9); Hemoglobin 8.5 GM/DL (12.0-16.0); Immature Granulocytes % 0.7 %; Immature Granulocytes Absolute 0.05 #; Lymphocytes % 27.9 % (21.3-54.2); Mean Corpuscular HGB Conc 30.4 GM/DL (32-36); Mean Corpuscular Volume 103.7 FL (87-102); Mean Platelet Volume 10.3 FL (9.6-12.0); Monocytes % 12.2 % (1.7-12.7); Neutrophils % 56.3 % (38.7-73.9); Platelet Count 238 T/CUMM (130-400); Red Cell Distribution Width 13.1 % (9.3-17.3); White Blood Count 7.3 T/CUMM (4-12)
[2020-04-27 08:31] LABS: Calcium 7.9 MG/DL (8.5-10.1); Osmolality,Calculated 282.7 MOS/KG (273-304); Potassium 4.2 MMOL/L (3.5-5.1)
[2020-04-27 08:43] LABS: Atypical Lymphocytes Few; Eosinophils 6 % (0-10); Hypochromasia 1+; Lymphocytes 29 % (20-55); Microcytosis 1+; Nucleated Red Blood Cells 1 (0-5); Segmented Neutrophils 58 % (50-85); Total Cells Counted 100
[2020-04-27 08:44] LABS: Platelet Estimate Normal; Polychromasia Slight
[2020-04-27] MEDS: CLOPIDOGREL 75 MG TABLET PO SCH (09:47)
[2020-04-27] MEDS: PRIMIDONE 50 MG TABLET PO SCH ×3 (09:47→20:37)
[2020-04-27] MEDS: DOCUSATE SODIUM 100 MG CAPSULE PO SCH ×2 (09:47→20:38)
[2020-04-27] MEDS: ASPIRIN EC 81 MG TABLET PO SCH (09:47)
[2020-04-27] MEDS: PANTOPRAZOLE 40 MG TABLET PO SCH (09:48)
[2020-04-27] MEDS: cloNIDine 0.1 MG TABLET PO SCH ×2 (09:48→20:38)
[2020-04-27] MEDS: BOSENTAN 125 MG PO SCH ×2 (09:48→20:41)
[2020-04-27] MEDS: INSULIN LISPRO 100 UNIT/ML SUBCUT SCH ×4 (09:50→20:41)
[2020-04-27] MEDS: INSULIN GLARGINE 100 UNIT/ML SUBCUT SCH (09:50)
[2020-04-27] MEDS: LIDOCAINE 5% PATCH TRANSDERM SCH (09:53)
[2020-04-27] MEDS ORDERED: POLYETHYLENE GLYCOL POWDER 17 GM PACK PO ONE (17:32)
[2020-04-27] MEDS ORDERED: LACTULOSE 20 GM/30 ML UDCUP PO PRN (17:32)
[2020-04-27] MEDS: ATORVASTATIN 20 MG TABLET PO SCH (20:38)
[2020-04-28 05:53] LABS: Basophils # 0.1 10*3/uL (0.0-0.2); Eosinophils # 0.1 10*3/uL (0.0-0.87); Hematocrit 25.7 VOL% (35.7-47.0); Hemoglobin 7.9 GM/DL (12.0-16.0); Immature Granulocytes % 0.4 %; Immature Granulocytes Absolute 0.03 #; Lymphocytes # 1.6 10*3/uL (1.4-4.0); Lymphocytes % 21.9 % (21.3-54.2); Mean Corpuscular HGB Conc 30.7 GM/DL (32-36); Mean Corpuscular Volume 104.9 FL (87-102); Mean Platelet Volume 10.2 FL (9.6-12.0); Monocytes % 12.3 % (1.7-12.7); Neutrophils % 62.4 % (38.7-73.9); Platelet Count 251 T/CUMM (130-400); Red Blood Count 2.45 MC/CUMM (3.8-5.5); Red Cell Distribution Width 13.1 % (9.3-17.3); White Blood Count 7.1 T/CUMM (4-12)
[2020-04-28 06:18] LABS: Anisocytosis 1+; Hypochromasia 1+; Microcytosis 1+; Polychromasia Slight; Potassium 4.9 MMOL/L (3.5-5.1)
[2020-04-28 06:19] LABS: Platelet Estimate Normal
[2020-04-28] MEDS: LEVOTHYROXINE 200 MCG TABLET PO SCH (06:21)
[2020-04-28] MEDS: ASPIRIN EC 81 MG TABLET PO SCH (09:00)
[2020-04-28] MEDS: BOSENTAN 125 MG PO SCH (09:00)
[2020-04-28] MEDS: DOCUSATE SODIUM 100 MG CAPSULE PO SCH (09:00)
[2020-04-28] MEDS: INSULIN GLARGINE 100 UNIT/ML SUBCUT SCH (09:00)
[2020-04-28] MEDS: cloNIDine 0.1 MG TABLET PO SCH (09:00)
[2020-04-28] MEDS: PRIMIDONE 50 MG TABLET PO SCH (09:01)
[2020-04-28] MEDS: LIDOCAINE 5% PATCH TRANSDERM SCH (09:01)
[2020-04-28] MEDS: CLOPIDOGREL 75 MG TABLET PO SCH (09:01)
[2020-04-28] MEDS: PANTOPRAZOLE 40 MG TABLET PO SCH (09:01)
[2020-04-28 09:07] VITALS: BP 148/59
[2020-04-28] MEDS: INSULIN LISPRO 100 UNIT/ML SUBCUT SCH ×2 (11:02→12:32)
[2020-04-28] MEDS: EPOETIN ALFA-EPBX 2,000 UNIT/ML VIAL SUBCUT SCH (13:24)
== END 2020-04-28 13:26 | DRG 64 ==
LOC: EDBD → EDUNIT# → N.ED 16:00 → N.EDINP 18:57 → N.TELEN 22:18
PROVIDERS: ADMIT Internal Medicine; ATTEND Internal Medicine

== ENCOUNTER 2021-04-03 13:43 | Inpatient (IN) ==
[2021-04-03 19:55] LABS: Basophils % 0.5 % (0.0-0.8); Eosinophils # 0.1 10*3/uL (0.0-0.87); Eosinophils % 1.1 % (0.00-10.9); Hematocrit 28.7 VOL% (35.7-47.0); Hemoglobin 9.4 GM/DL (12.0-16.0); Immature Granulocytes % 0.5 %; Immature Granulocytes Absolute 0.03 #; Lymphocytes # 0.9 10*3/uL (1.4-4.0); Lymphocytes % 16.2 % (21.3-54.2); Mean Corpuscular HGB Conc 32.8 GM/DL (32-36); Mean Corpuscular Volume 103.2 FL (87-102); Mean Platelet Volume 9.3 FL (9.6-12.0); Monocytes % 12.6 % (1.7-12.7); Neutrophils % 69.1 % (38.7-73.9); Platelet Count 239 T/CUMM (130-400); Red Blood Count 2.78 MC/CUMM (3.8-5.5); Red Cell Distribution Width 16.7 % (9.3-17.3); White Blood Count 5.5 T/CUMM (4-12)
[2021-04-03 20:29] LABS: Calcium 8.8 MG/DL (8.5-10.1); Osmolality,Calculated 328.5 MOS/KG (273-304); Potassium 4.2 MMOL/L (3.5-5.1)
[2021-04-04] MEDS ORDERED: GLUCAGON 1 MG VIAL IM PRN (01:34)
[2021-04-04] MEDS ORDERED: DEXTROSE 50% 25 GM/50 ML SYRINGE IV PRN ×2 (01:36→09:41)
[2021-04-04] MEDS ORDERED: BUPIVACAINE MPF 0.25% 30 ML VIAL ONE (06:31)
[2021-04-04] MEDS ORDERED: HEPARIN 5,000 UNIT/1 ML VIAL ONE (06:31)
[2021-04-04] MEDS ORDERED: LIDOCAINE 1%/EPI INJ 20 ML VIAL ONE (06:31)
[2021-04-04] MEDS ORDERED: propofoL 200 MG/20 ML VIAL IV ONE (06:49)
[2021-04-04] MEDS ORDERED: LIDOCAINE 2% 5 ML VIAL ONE (06:49)
[2021-04-04] MEDS ORDERED: fentaNYL 100 MCG/2 ML VIAL ONE (06:49)
[2021-04-04] MEDS ORDERED: ETOMIDATE 40 MG/20 ML VIAL IV ONE (06:49)
[2021-04-04] MEDS ORDERED: MIDAZOLAM 2 MG/2 ML VIAL ONE (07:29)
[2021-04-04] MEDS ORDERED: TISSUE ADHESIVE 1 EACH APPLICATOR TOP ONE (08:05)
[2021-04-04] MEDS ORDERED: SODIUM CHLORIDE 0.9% 250 ML IV ONE (08:12)
[2021-04-04] MEDS ORDERED: VANCOMYCIN INJ 1,000 MG in SODIUM CHLORIDE 0.9% 250 ML IV ONE (09:22)
[2021-04-04] MEDS ORDERED: ZALEPLON 5 MG CAPSULE PO PRN (09:25)
[2021-04-04] MEDS ORDERED: VANCOMYCIN INJ 500 MG in SODIUM CHLORIDE 0.9% 100 ML IV PRN (09:50)
[2021-04-04] MEDS: SEVELAMER CARBONATE 800 MG TABLET PO SCH ×2 (12:02→16:57)
[2021-04-04] MEDS ORDERED: EPOETIN ALFA-EPBX 2,000 UNIT/ML VIAL IV PRN (15:43)
[2021-04-04] MEDS: PRIMIDONE 250 MG TABLET PO SCH ×2 (16:13→21:55)
[2021-04-04] MEDS ORDERED: VANCOMYCIN INJ 1,750 MG in SODIUM CHLORIDE 0.9% 500 ML IV ONE ×2 (18:00→21:00)
[2021-04-04] MEDS ORDERED: ATORVASTATIN 20 MG TABLET PO SCH (21:00)
[2021-04-04] MEDS: cloNIDine 0.1 MG TABLET PO SCH (21:55)
[2021-04-04] MEDS: BOSENTAN 125 MG PO SCH (21:56)
[2021-04-04] MEDS: INSULIN LISPRO 100 UNIT/ML SUBCUT SCH (22:53)
[2021-04-05] MEDS ORDERED: LEVOTHYROXINE 200 MCG TABLET PO SCH (06:30)
[2021-04-05] MEDS ORDERED: PANTOPRAZOLE 40 MG TABLET PO SCH (09:00)
[2021-04-05] MEDS ORDERED: CLOPIDOGREL 75 MG TABLET PO SCH (09:00)
[2021-04-05] MEDS ORDERED: ASPIRIN EC 81 MG TABLET PO SCH (09:00)
[2021-04-05] MEDS: SEVELAMER CARBONATE 800 MG TABLET PO SCH ×2 (09:33→13:16)
[2021-04-05] MEDS: BOSENTAN 125 MG PO SCH (09:34)
[2021-04-05] MEDS: cloNIDine 0.1 MG TABLET PO SCH (09:34)
[2021-04-05] MEDS: PRIMIDONE 250 MG TABLET PO SCH (09:34)
[2021-04-05] MEDS: INSULIN LISPRO 100 UNIT/ML SUBCUT SCH ×2 (09:34→13:16)
[2021-04-05 12:06] VITALS: BP 133/41
== END 2021-04-05 14:10 | disposition home health service (06) | DRG 252 ==
LOC: N.ED 13:43 → N.3E 21:28
PROVIDERS: ADMIT Internal Medicine; ATTEND Internal Medicine

== ENCOUNTER 2021-04-06 21:44 | Inpatient (IN) ==
[2021-04-06] MEDS ORDERED: ACETAMINOPHEN 500 MG TABLET PO STA (22:32)
[2021-04-06] MEDS ORDERED: cefTRIAXone 1,000 MG in SODIUM CHLORIDE 0.9% 100 ML IV STA (22:35)
[2021-04-06 23:09] LABS: Basophils % 0.5 % (0.0-0.8); Eosinophils # 0.1 10*3/uL (0.0-0.87); Eosinophils % 1.8 % (0.00-10.9); Hematocrit 29.2 VOL% (35.7-47.0); Hemoglobin 9.4 GM/DL (12.0-16.0); Immature Granulocytes % 0.4 %; Immature Granulocytes Absolute 0.02 #; Lymphocytes # 0.7 10*3/uL (1.4-4.0); Lymphocytes % 13.4 % (21.3-54.2); Mean Corpuscular HGB Conc 32.2 GM/DL (32-36); Mean Platelet Volume 9.9 FL (9.6-12.0); Monocytes % 15.1 % (1.7-12.7); Neutrophils % 68.8 % (38.7-73.9); Platelet Count 165 T/CUMM (130-400); Red Blood Count 2.78 MC/CUMM (3.8-5.5); White Blood Count 5.5 T/CUMM (4-12)
[2021-04-06 23:23] LABS: Calcium 8.7 MG/DL (8.5-10.1); Osmolality,Calculated 308.5 MOS/KG (273-304); Potassium 4.8 MMOL/L (3.5-5.1)
[2021-04-07] MEDS ORDERED: VANCOMYCIN INJ 1,000 MG in SODIUM CHLORIDE 0.9% 250 ML IV STA (00:41)
[2021-04-07] MEDS ORDERED: ONDANSETRON 4 MG/2 ML VIAL IV PRN (05:18)
[2021-04-07] MEDS ORDERED: PROMETHAZINE 25 MG TABLET PO PRN (05:18)
[2021-04-07] MEDS ORDERED: VANCOMYCIN INJ 500 MG in SODIUM CHLORIDE 0.9% 100 ML IV PRN (08:25)
[2021-04-07] MEDS: PIPERACILLIN/TAZOBACTAM 3,375 MG in SODIUM CHLORIDE 0.9% 100 ML IV SCH ×2 (08:27→21:26)
[2021-04-07] MEDS: HEPARIN 5,000 UNIT/1 ML VIAL SUBCUT SCH ×2 (08:28→21:30)
[2021-04-07] MEDS ORDERED: INSULIN LISPRO 100 UNIT/ML SUBCUT PRN (08:55)
[2021-04-07] MEDS ORDERED: EPOETIN ALFA-EPBX 2,000 UNIT/ML VIAL IV PRN (09:02)
[2021-04-07] MEDS ORDERED: ZALEPLON 5 MG CAPSULE PO PRN (09:02)
[2021-04-07] MEDS: SEVELAMER CARBONATE 800 MG TABLET PO SCH ×2 (14:23→17:32)
[2021-04-07] MEDS: ASPIRIN EC 81 MG TABLET PO SCH (14:23)
[2021-04-07] MEDS: BOSENTAN PO SCH ×2 (14:23→21:27)
[2021-04-07] MEDS: cloNIDine 0.1 MG TABLET PO SCH ×2 (14:23→21:25)
[2021-04-07] MEDS: CLOPIDOGREL 75 MG TABLET PO SCH (14:23)
[2021-04-07] MEDS: PRIMIDONE 250 MG TABLET PO SCH ×2 (15:59→21:25)
[2021-04-07] MEDS ORDERED: VANCOMYCIN INJ 500 MG in SODIUM CHLORIDE 0.9% 100 ML IV ONE (20:00)
[2021-04-07] MEDS: ATORVASTATIN 20 MG TABLET PO SCH (21:25)
[2021-04-07] MEDS: TRIAMCINOLONE 0.1% CREAM 15 GM TUBE TOP SCH (21:30)
[2021-04-08] MEDS ORDERED: DEXTROSE 50% 25 GM/50 ML SYRINGE IV PRN (03:38)
[2021-04-08] MEDS ORDERED: GLUCAGON 1 MG VIAL IM PRN (03:38)
[2021-04-08 05:32] LABS: Basophils % 0.4 % (0.0-0.8); Eosinophils # 0.1 10*3/uL (0.0-0.87); Eosinophils % 1.7 % (0.00-10.9); Hemoglobin 8.6 GM/DL (12.0-16.0); Immature Granulocytes % 0.4 %; Immature Granulocytes Absolute 0.02 #; Lymphocytes % 18.3 % (21.3-54.2); Mean Corpuscular HGB Conc 31.9 GM/DL (32-36); Mean Corpuscular Volume 105.1 FL (87-102); Mean Platelet Volume 10.7 FL (9.6-12.0); Monocytes % 12.8 % (1.7-12.7); Neutrophils % 66.4 % (38.7-73.9); Platelet Count 154 T/CUMM (130-400); Red Blood Count 2.57 MC/CUMM (3.8-5.5); Red Cell Distribution Width 15.9 % (9.3-17.3); White Blood Count 5.5 T/CUMM (4-12)
[2021-04-08 05:47] LABS: Calcium 7.8 MG/DL (8.5-10.1); Osmolality,Calculated 302.4 MOS/KG (273-304); Potassium 4.5 MMOL/L (3.5-5.1)
[2021-04-08] MEDS: PANTOPRAZOLE 40 MG TABLET PO SCH (05:56)
[2021-04-08] MEDS: LEVOTHYROXINE 200 MCG TABLET PO SCH (05:56)
[2021-04-08] MEDS: ASPIRIN EC 81 MG TABLET PO SCH (08:50)
[2021-04-08] MEDS: CLOPIDOGREL 75 MG TABLET PO SCH (08:51)
[2021-04-08] MEDS: PRIMIDONE 250 MG TABLET PO SCH ×3 (08:51→21:32)
[2021-04-08] MEDS: SEVELAMER CARBONATE 800 MG TABLET PO SCH ×3 (08:51→17:20)
[2021-04-08] MEDS: cloNIDine 0.1 MG TABLET PO SCH ×2 (08:52→21:32)
[2021-04-08] MEDS: TRIAMCINOLONE 0.1% CREAM 15 GM TUBE TOP SCH ×2 (08:53→21:33)
[2021-04-08] MEDS: HEPARIN 5,000 UNIT/1 ML VIAL SUBCUT SCH ×2 (08:57→21:33)
[2021-04-08] MEDS: BOSENTAN PO SCH ×2 (09:23→21:36)
[2021-04-08] MEDS: PIPERACILLIN/TAZOBACTAM 3,375 MG in SODIUM CHLORIDE 0.9% 100 ML IV SCH ×2 (13:02→21:33)
[2021-04-08] MEDS ORDERED: VANCOMYCIN INJ 500 MG in SODIUM CHLORIDE 0.9% 100 ML IV ONE (17:00)
[2021-04-08] MEDS: ATORVASTATIN 20 MG TABLET PO SCH (21:32)
[2021-04-09] MEDS: LEVOTHYROXINE 200 MCG TABLET PO SCH (05:30)
[2021-04-09] MEDS: PANTOPRAZOLE 40 MG TABLET PO SCH (05:30)
[2021-04-09] MEDS: cloNIDine 0.1 MG TABLET PO SCH ×2 (08:11→21:02)
[2021-04-09] MEDS: PIPERACILLIN/TAZOBACTAM 3,375 MG in SODIUM CHLORIDE 0.9% 100 ML IV SCH (08:11)
[2021-04-09] MEDS: PRIMIDONE 250 MG TABLET PO SCH ×3 (08:11→21:02)
[2021-04-09] MEDS: BOSENTAN PO SCH ×2 (08:11→21:03)
[2021-04-09] MEDS: SEVELAMER CARBONATE 800 MG TABLET PO SCH ×3 (08:11→16:12)
[2021-04-09] MEDS: ASPIRIN EC 81 MG TABLET PO SCH (08:11)
[2021-04-09] MEDS: TRIAMCINOLONE 0.1% CREAM 15 GM TUBE TOP SCH ×2 (08:11→21:03)
[2021-04-09] MEDS: CLOPIDOGREL 75 MG TABLET PO SCH (08:11)
[2021-04-09] MEDS: HEPARIN 5,000 UNIT/1 ML VIAL SUBCUT SCH ×2 (09:11→21:04)
[2021-04-09] MEDS: AMOXICILLIN/CLAV 500 MG TABLET PO SCH (21:02)
[2021-04-09] MEDS: ATORVASTATIN 20 MG TABLET PO SCH (21:02)
[2021-04-10] MEDS: LEVOTHYROXINE 200 MCG TABLET PO SCH (05:41)
[2021-04-10] MEDS: PANTOPRAZOLE 40 MG TABLET PO SCH (05:41)
[2021-04-10] MEDS: PRIMIDONE 250 MG TABLET PO SCH ×2 (08:16→14:27)
[2021-04-10] MEDS: SEVELAMER CARBONATE 800 MG TABLET PO SCH ×2 (08:17→14:28)
[2021-04-10] MEDS: CLOPIDOGREL 75 MG TABLET PO SCH (08:17)
[2021-04-10] MEDS: AMOXICILLIN/CLAV 500 MG TABLET PO SCH (08:17)
[2021-04-10] MEDS: ASPIRIN EC 81 MG TABLET PO SCH (08:17)
[2021-04-10] MEDS: cloNIDine 0.1 MG TABLET PO SCH (08:17)
[2021-04-10] MEDS: BOSENTAN PO SCH (08:19)
[2021-04-10] MEDS: TRIAMCINOLONE 0.1% CREAM 15 GM TUBE TOP SCH (08:20)
[2021-04-10] MEDS: HEPARIN 5,000 UNIT/1 ML VIAL SUBCUT SCH (08:35)
[2021-04-10 14:56] VITALS: BP 129/43
== END 2021-04-10 15:28 | disposition home health service (06) | DRG 638 ==
LOC: EDBD → EDUNIT# → N.ED 21:44 → N.5E 04-07 00:56 → N.ED 04-07 04:26
PROVIDERS: ADMIT Internal Medicine; ATTEND Internal Medicine

== ENCOUNTER 2021-10-03 06:02 | Inpatient (IN) ==
[2021-10-03 06:42] LABS: Basophils % 0.3 % (0.0-0.8); Eosinophils % 0.3 % (0.00-10.9); Immature Granulocytes % 0.6 %; Immature Granulocytes Absolute 0.04 #; Lymphocytes # 1.4 10*3/uL (1.4-4.0); Lymphocytes % 21.2 % (21.3-54.2); Mean Corpuscular HGB Conc 32.7 GM/DL (32-36); Mean Corpuscular Volume 109.8 FL (87-102); Mean Platelet Volume 11.4 FL (9.6-12.0); Monocytes # 1.1 10*3/uL (0.11-0.8); Monocytes % 17.1 % (1.7-12.7); Neutrophils % 60.5 % (38.7-73.9); Platelet Count 122 T/CUMM (130-400); Red Blood Count 1.53 MC/CUMM (3.8-5.5); Red Cell Distribution Width 14.6 % (9.3-17.3); White Blood Count 6.5 T/CUMM (4-12)
[2021-10-03 06:46] LABS: Hemoglobin 5.5 GM/DL (12.0-16.0)
[2021-10-03 06:47] LABS: Hematocrit 16.8 VOL% (35.7-47.0)
[2021-10-03] MEDS ORDERED: SODIUM CHLORIDE 0.9% 1,000 ML IV PRN ×4 (06:49→22:28)
[2021-10-03 06:59] LABS: Alanine Aminotransferase 26 U/L (13-56); Albumin 2.8 G/DL (3.4-5.0); Alkaline Phosphatase 130 U/L (45-117); Aspartate Amino Transferase 28 U/L (0-37); Bilirubin,Total < 0.39 MG/DL (0.20-1.00); Blood Urea Nitrogen 80 MG/DL (7-18); Calcium 8.5 MG/DL (8.5-10.1); Carbon Dioxide 27 MMOL/L (21-32); Chloride 93 MMOL/L (98-107); Glucose 430 MG/DL (74-106); Osmolality,Calculated 307.4 MOS/KG (273-304); Potassium 4.3 MMOL/L (3.5-5.1); Sodium 133 MMOL/L (136-145); Total Protein 5.5 G/DL (6.4-8.2)
[2021-10-03] MEDS ORDERED: ACETAMINOPHEN 325 MG TABLET PO PRN (06:59)
[2021-10-03] MEDS ORDERED: ONDANSETRON 4 MG/2 ML VIAL IV PRN (06:59)
[2021-10-03] MEDS ORDERED: DEXTROSE 10% 250 ML BAG IV PRN (07:02)
[2021-10-03] MEDS ORDERED: GLUCAGON 1 MG VIAL IM PRN ×2 (07:02→10:18)
[2021-10-03 07:05] LABS: Anisocytosis 1+; Band Neutrophils 2 % (0-10); Eosinophils 1 % (0-10); Lymphocytes 21 % (20-55); Macrocytosis 1+; Platelet Estimate Adequate; Total Cells Counted 100
[2021-10-03 07:06] LABS: Basophilic Stippling Slight
[2021-10-03] MEDS: INSULIN LISPRO 100 UNIT/ML SUBCUT SCH ×4 (08:02→22:17)
[2021-10-03] MEDS ORDERED: DEXTROSE 50% 25 GM/50 ML VIAL IV PRN (10:18)
[2021-10-03] MEDS: DOCUSATE SODIUM 100 MG CAPSULE PO SCH ×3 (11:35→22:58)
[2021-10-03] MEDS: PANTOPRAZOLE 40 MG TABLET PO SCH (11:35)
[2021-10-03] MEDS ORDERED: ZALEPLON 5 MG CAPSULE PO PRN (14:34)
[2021-10-03] MEDS ORDERED: EPOETIN ALFA-EPBX 3,000 UNIT/ML VIAL IV PRN (14:42)
[2021-10-03] MEDS: PRIMIDONE 250 MG TABLET PO SCH ×2 (15:15→22:15)
[2021-10-03] MEDS: ASPIRIN EC 81 MG TABLET PO SCH (15:15)
[2021-10-03 16:16] LABS: Hematocrit 20.4 VOL% (35.7-47.0)
[2021-10-03 16:26] LABS: Hemoglobin 6.9 GM/DL (12.0-16.0)
[2021-10-03] MEDS: SEVELAMER CARBONATE 800 MG TABLET PO SCH (16:27)
[2021-10-03] MEDS: FERROUS SULFATE 325 MG TABLET PO SCH (22:15)
[2021-10-03] MEDS: ATORVASTATIN 20 MG TABLET PO SCH (22:16)
[2021-10-03] MEDS: INSULIN GLARGINE 100 UNIT/ML SUBCUT SCH (22:16)
[2021-10-03] MEDS: BOSENTAN 125 MG PO SCH (22:58)
[2021-10-04 05:23] LABS: Basophils % 0.3 % (0.0-0.8); Eosinophils # 0.1 10*3/uL (0.0-0.87); Eosinophils % 0.6 % (0.00-10.9); Hematocrit 19.2 VOL% (35.7-47.0); Hemoglobin 6.5 GM/DL (12.0-16.0); Immature Granulocytes % 0.8 %; Immature Granulocytes Absolute 0.07 #; Lymphocytes # 2.5 10*3/uL (1.4-4.0); Mean Corpuscular HGB Conc 33.9 GM/DL (32-36); Mean Corpuscular Volume 97.5 FL (87-102); Mean Platelet Volume 11.1 FL (9.6-12.0); Monocytes # 0.9 10*3/uL (0.11-0.8); Monocytes % 10.3 % (1.7-12.7); Platelet Count 105 T/CUMM (130-400); Red Blood Count 1.97 MC/CUMM (3.8-5.5); Red Cell Distribution Width 20.6 % (9.3-17.3); White Blood Count 8.9 T/CUMM (4-12)
[2021-10-04 05:39] LABS: Calcium 8.8 MG/DL (8.5-10.1); Phosphorous 4.4 MG/DL (2.5-4.9); Potassium 4.4 MMOL/L (3.5-5.1)
[2021-10-04] MEDS: LEVOTHYROXINE 175 MCG TABLET PO SCH (06:13)
[2021-10-04 07:24] LABS: Anisocytosis 2+; Band Neutrophils 8 % (0-10); Eosinophils 1 % (0-10); Lymphocytes 26 % (20-55); Macrocytosis 1+; Platelet Estimate Adequate; Total Cells Counted 100
[2021-10-04] MEDS: INSULIN LISPRO 100 UNIT/ML SUBCUT SCH ×4 (08:30→21:45)
[2021-10-04] MEDS ORDERED: INSULIN GLARGINE 100 UNIT/ML SUBCUT SCH (09:00)
[2021-10-04] MEDS: SEVELAMER CARBONATE 800 MG TABLET PO SCH ×3 (10:24→17:04)
[2021-10-04] MEDS: FERROUS SULFATE 325 MG TABLET PO SCH ×2 (10:24→21:41)
[2021-10-04] MEDS: PANTOPRAZOLE 40 MG TABLET PO SCH (10:25)
[2021-10-04] MEDS: PRIMIDONE 250 MG TABLET PO SCH ×3 (10:25→21:41)
[2021-10-04] MEDS: ASPIRIN EC 81 MG TABLET PO SCH (10:25)
[2021-10-04] MEDS: DOCUSATE SODIUM 100 MG CAPSULE PO SCH ×2 (10:56→20:29)
[2021-10-04] MEDS: BOSENTAN 125 MG PO SCH ×3 (11:04→21:41)
[2021-10-04 14:52] LABS: Hematocrit 22.1 VOL% (35.7-47.0); Hemoglobin 7.7 GM/DL (12.0-16.0)
[2021-10-04] MEDS: ATORVASTATIN 20 MG TABLET PO SCH (21:41)
[2021-10-04] MEDS: INSULIN GLARGINE 100 UNIT/ML SUBCUT SCH (21:44)
[2021-10-05] MEDS: LEVOTHYROXINE 175 MCG TABLET PO SCH (05:41)
[2021-10-05 05:49] LABS: Basophils % 0.6 % (0.0-0.8); Eosinophils # 0.1 10*3/uL (0.0-0.87); Eosinophils % 1.1 % (0.00-10.9); Hematocrit 21.9 VOL% (35.7-47.0); Hemoglobin 7.4 GM/DL (12.0-16.0); Immature Granulocytes % 0.9 %; Immature Granulocytes Absolute 0.06 #; Lymphocytes % 30.2 % (21.3-54.2); Mean Corpuscular HGB Conc 33.8 GM/DL (32-36); Mean Corpuscular Volume 96.1 FL (87-102); Mean Platelet Volume 10.8 FL (9.6-12.0); Monocytes # 0.8 10*3/uL (0.11-0.8); Monocytes % 12.1 % (1.7-12.7); Neutrophils % 55.1 % (38.7-73.9); Platelet Count 119 T/CUMM (130-400); Red Blood Count 2.28 MC/CUMM (3.8-5.5); Red Cell Distribution Width 20.1 % (9.3-17.3); White Blood Count 6.5 T/CUMM (4-12)
[2021-10-05 06:09] LABS: Calcium 8.8 MG/DL (8.5-10.1); Potassium 4.2 MMOL/L (3.5-5.1)
[2021-10-05 06:32] LABS: Phosphorous 5.1 MG/DL (2.5-4.9)
[2021-10-05 07:05] LABS: Anisocytosis 1+; Lymphocytes 22 % (20-55); Nucleated Red Blood Cells 1 (0-5); Platelet Estimate Adequate; Polychromasia Slight; Total Cells Counted 100
[2021-10-05] MEDS: INSULIN LISPRO 100 UNIT/ML SUBCUT SCH ×4 (07:57→22:55)
[2021-10-05] MEDS: PANTOPRAZOLE 40 MG TABLET PO SCH (08:30)
[2021-10-05] MEDS: SEVELAMER CARBONATE 800 MG TABLET PO SCH ×3 (08:30→17:25)
[2021-10-05] MEDS: PRIMIDONE 250 MG TABLET PO SCH ×3 (08:30→22:57)
[2021-10-05] MEDS: FERROUS SULFATE 325 MG TABLET PO SCH ×2 (08:30→22:57)
[2021-10-05] MEDS ORDERED: INSULIN GLARGINE 100 UNIT/ML SUBCUT SCH (09:00)
[2021-10-05] MEDS ORDERED: HEPARIN 10,000 UNIT/10 ML VIAL IV PRN (10:43)
[2021-10-05] MEDS: BOSENTAN 125 MG PO SCH ×2 (13:30→23:00)
[2021-10-05] MEDS: ASPIRIN EC 81 MG TABLET PO SCH (13:30)
[2021-10-05] MEDS: DOCUSATE SODIUM 100 MG CAPSULE PO SCH ×3 (13:30→23:06)
[2021-10-05] MEDS: INSULIN GLARGINE 100 UNIT/ML SUBCUT SCH (22:56)
[2021-10-05] MEDS: ATORVASTATIN 20 MG TABLET PO SCH (22:57)
[2021-10-06 04:56] LABS: Basophils % 0.6 % (0.0-0.8); Eosinophils % 0.8 % (0.00-10.9); Hematocrit 23.2 VOL% (35.7-47.0); Hemoglobin 7.6 GM/DL (12.0-16.0); Immature Granulocytes % 1.2 %; Immature Granulocytes Absolute 0.06 #; Lymphocytes # 1.4 10*3/uL (1.4-4.0); Lymphocytes % 28.3 % (21.3-54.2); Mean Corpuscular HGB Conc 32.8 GM/DL (32-36); Mean Corpuscular Volume 99.6 FL (87-102); Monocytes # 0.7 10*3/uL (0.11-0.8); Monocytes % 12.9 % (1.7-12.7); Neutrophils % 56.2 % (38.7-73.9); Platelet Count 118 T/CUMM (130-400); Red Blood Count 2.33 MC/CUMM (3.8-5.5); Red Cell Distribution Width 19.8 % (9.3-17.3); White Blood Count 5.1 T/CUMM (4-12)
[2021-10-06 05:13] LABS: Calcium 8.4 MG/DL (8.5-10.1); Osmolality,Calculated 298.7 MOS/KG (273-304); Potassium 4.1 MMOL/L (3.5-5.1)
[2021-10-06] MEDS: LEVOTHYROXINE 175 MCG TABLET PO SCH ×2 (06:15→15:16)
[2021-10-06] MEDS ORDERED: SODIUM CHLORIDE 0.9% 1,000 ML IV SCH (07:00)
[2021-10-06] MEDS: INSULIN LISPRO 100 UNIT/ML SUBCUT SCH ×4 (09:44→23:03)
[2021-10-06] MEDS: SEVELAMER CARBONATE 800 MG TABLET PO SCH ×3 (09:45→17:17)
[2021-10-06] MEDS ORDERED: INSULIN LISPRO 100 UNIT/ML SUBCUT SCH (13:00)
[2021-10-06] MEDS ORDERED: ONDANSETRON 4 MG/2 ML VIAL ONE (13:03)
[2021-10-06] MEDS ORDERED: ETOMIDATE 20 MG/10 ML VIAL IV ONE (13:05)
[2021-10-06] MEDS ORDERED: LIDOCAINE 2% 5 ML VIAL ONE (13:05)
[2021-10-06] MEDS ORDERED: propofoL 200 MG/20 ML VIAL IV ONE (13:05)
[2021-10-06] MEDS ORDERED: BISACODYL 5 MG TABLET PO ONE (15:00)
[2021-10-06] MEDS: PANTOPRAZOLE 40 MG TABLET PO SCH (15:15)
[2021-10-06] MEDS: FERROUS SULFATE 325 MG TABLET PO SCH ×2 (15:15→23:06)
[2021-10-06] MEDS: DOCUSATE SODIUM 100 MG CAPSULE PO SCH ×2 (15:15→23:06)
[2021-10-06] MEDS: PRIMIDONE 250 MG TABLET PO SCH ×3 (15:16→23:06)
[2021-10-06] MEDS: ASPIRIN EC 81 MG TABLET PO SCH (15:16)
[2021-10-06] MEDS: BOSENTAN 125 MG PO SCH ×2 (15:37→23:05)
[2021-10-06] MEDS ORDERED: ZINC OXIDE PASTE 113 GM TUBE TOP PRN (15:46)
[2021-10-06] MEDS ORDERED: POLYETHYLENE GLYCOL POWDER 255 GM BOTTLE PO ONE (18:00)
[2021-10-06] MEDS: INSULIN GLARGINE 100 UNIT/ML SUBCUT SCH (23:04)
[2021-10-06] MEDS: ATORVASTATIN 20 MG TABLET PO SCH (23:06)
[2021-10-07] MEDS ORDERED: POLYETHYLENE GLYCOL POWDER 255 GM BOTTLE PO ONE (05:00)
[2021-10-07] MEDS: LEVOTHYROXINE 175 MCG TABLET PO SCH (05:44)
[2021-10-07] MEDS: INSULIN LISPRO 100 UNIT/ML SUBCUT SCH ×4 (08:46→21:12)
[2021-10-07 08:59] LABS: Calcium 8.7 MG/DL (8.5-10.1); Osmolality,Calculated 298.1 MOS/KG (273-304); Potassium 4.9 MMOL/L (3.5-5.1)
[2021-10-07] MEDS: SEVELAMER CARBONATE 800 MG TABLET PO SCH ×3 (09:37→17:08)
[2021-10-07] MEDS: FERROUS SULFATE 325 MG TABLET PO SCH ×2 (09:38→21:09)
[2021-10-07] MEDS: BOSENTAN 125 MG PO SCH ×2 (09:38→21:13)
[2021-10-07] MEDS: DOCUSATE SODIUM 100 MG CAPSULE PO SCH ×2 (09:38→21:08)
[2021-10-07] MEDS: ASPIRIN EC 81 MG TABLET PO SCH (09:38)
[2021-10-07] MEDS: PRIMIDONE 250 MG TABLET PO SCH ×3 (09:39→21:08)
[2021-10-07] MEDS: PANTOPRAZOLE 40 MG TABLET PO SCH (09:39)
[2021-10-07] MEDS ORDERED: SODIUM CHLORIDE 0.9% 500 ML IV SCH (13:44)
[2021-10-07] MEDS ORDERED: LIDOCAINE 2% 5 ML VIAL ONE (14:03)
[2021-10-07] MEDS ORDERED: ETOMIDATE 20 MG/10 ML VIAL IV ONE (14:03)
[2021-10-07] MEDS ORDERED: propofoL 200 MG/20 ML VIAL IV ONE (14:03)
[2021-10-07] MEDS ORDERED: PHENYLEPHRINE 1 MG/10 ML SYRINGE IV ONE (14:03)
[2021-10-07] MEDS ORDERED: GLUCAGON 1 MG VIAL IM PRN (16:14)
[2021-10-07] MEDS ORDERED: DEXTROSE 10% 250 ML BAG IV PRN (16:23)
[2021-10-07] MEDS: ATORVASTATIN 20 MG TABLET PO SCH (21:09)
[2021-10-07] MEDS: INSULIN GLARGINE 100 UNIT/ML SUBCUT SCH (21:10)
[2021-10-08 05:19] LABS: Basophils % 0.2 % (0.0-0.8); Eosinophils # 0.1 10*3/uL (0.0-0.87); Eosinophils % 0.9 % (0.00-10.9); Hematocrit 20.6 VOL% (35.7-47.0); Hemoglobin 6.8 GM/DL (12.0-16.0); Immature Granulocytes % 0.5 %; Immature Granulocytes Absolute 0.03 #; Lymphocytes # 1.5 10*3/uL (1.4-4.0); Lymphocytes % 23.9 % (21.3-54.2); Mean Corpuscular Volume 101.5 FL (87-102); Mean Platelet Volume 10.2 FL (9.6-12.0); Monocytes # 0.6 10*3/uL (0.11-0.8); Monocytes % 9.9 % (1.7-12.7); Neutrophils % 64.6 % (38.7-73.9); Platelet Count 135 T/CUMM (130-400); Red Blood Count 2.03 MC/CUMM (3.8-5.5); Red Cell Distribution Width 19.2 % (9.3-17.3); White Blood Count 6.5 T/CUMM (4-12)
[2021-10-08 05:40] LABS: Osmolality,Calculated 284.7 MOS/KG (273-304); Potassium 4.2 MMOL/L (3.5-5.1)
[2021-10-08] MEDS: LEVOTHYROXINE 175 MCG TABLET PO SCH (06:00)
[2021-10-08] MEDS ORDERED: SODIUM CHLORIDE 0.9% 1,000 ML IV PRN (07:40)
[2021-10-08] MEDS: INSULIN LISPRO 100 UNIT/ML SUBCUT SCH (07:57)
[2021-10-08] MEDS ORDERED: INSULIN LISPRO 100 UNIT/ML SUBCUT PRN (09:30)
[2021-10-08] MEDS: ASPIRIN EC 81 MG TABLET PO SCH (09:46)
[2021-10-08] MEDS: FERROUS SULFATE 325 MG TABLET PO SCH ×2 (09:46→21:01)
[2021-10-08] MEDS: SEVELAMER CARBONATE 800 MG TABLET PO SCH ×3 (09:46→16:18)
[2021-10-08] MEDS: DOCUSATE SODIUM 100 MG CAPSULE PO SCH ×2 (09:46→21:02)
[2021-10-08] MEDS: PRIMIDONE 250 MG TABLET PO SCH ×3 (09:46→21:01)
[2021-10-08] MEDS: PANTOPRAZOLE 40 MG TABLET PO SCH (09:46)
[2021-10-08] MEDS: BOSENTAN 125 MG PO SCH ×2 (09:47→21:02)
[2021-10-08] MEDS: ATORVASTATIN 20 MG TABLET PO SCH (21:01)
[2021-10-09 04:54] LABS: Hematocrit 32.4 VOL% (35.7-47.0); Hemoglobin 10.5 GM/DL (12.0-16.0)
[2021-10-09] MEDS: LEVOTHYROXINE 175 MCG TABLET PO SCH (05:44)
[2021-10-09 07:38] VITALS: BP 131/47
[2021-10-09] MEDS: FERROUS SULFATE 325 MG TABLET PO SCH (12:27)
[2021-10-09] MEDS: BOSENTAN 125 MG PO SCH (12:27)
[2021-10-09] MEDS: ASPIRIN EC 81 MG TABLET PO SCH (12:27)
[2021-10-09] MEDS: DOCUSATE SODIUM 100 MG CAPSULE PO SCH (12:27)
[2021-10-09] MEDS: SEVELAMER CARBONATE 800 MG TABLET PO SCH ×2 (12:27→12:28)
[2021-10-09] MEDS: PRIMIDONE 250 MG TABLET PO SCH (12:27)
[2021-10-09] MEDS: PANTOPRAZOLE 40 MG TABLET PO SCH (12:28)
== END 2021-10-09 14:34 | disposition home health service (06) | DRG 377 ==
LOC: N.5E 06:02 → N.ED 06:02 → N.5E 08:12
PROVIDERS: ADMIT Internal Medicine; ATTEND Internal Medicine

== ENCOUNTER 2022-01-15 15:21 | Inpatient (IN) ==
[2022-01-15] MEDS ORDERED: CLINDAMYCIN INJ 300 MG/50 ML PREMIX IV STA (16:56)
[2022-01-15] MEDS ORDERED: LEVOFLOXACIN 500 MG TABLET PO STA (16:56)
[2022-01-15 16:58] LABS: Basophils # 0.1 10*3/uL (0.0-0.2); Basophils % 0.6 % (0.0-0.8); Eosinophils # 0.1 10*3/uL (0.0-0.87); Eosinophils % 1.3 % (0.00-10.9); Hematocrit 30.7 VOL% (35.7-47.0); Immature Granulocytes % 1.5 %; Immature Granulocytes Absolute 0.15 #; Lymphocytes # 1.3 10*3/uL (1.4-4.0); Lymphocytes % 12.3 % (21.3-54.2); Mean Corpuscular HGB Conc 32.6 GM/DL (32-36); Mean Corpuscular Volume 107.3 FL (87-102); Mean Platelet Volume 9.9 FL (9.6-12.0); Monocytes # 0.7 10*3/uL (0.11-0.8); Monocytes % 6.3 % (1.7-12.7); Platelet Count 308 T/CUMM (130-400); Red Blood Count 2.86 MC/CUMM (3.8-5.5); Red Cell Distribution Width 16.4 % (9.3-17.3); White Blood Count 10.3 T/CUMM (4-12)
[2022-01-15 17:11] LABS: Calcium 8.2 MG/DL (8.5-10.1); Osmolality,Calculated 301.1 MOS/KG (273-304)
[2022-01-15 17:21] LABS: Potassium 5.9 MMOL/L (3.5-5.1)
[2022-01-15 18:19] LABS: Sedimentation Rate-Westergren 97 MM/HR (0-30)
[2022-01-15] MEDS ORDERED: INSULIN REGULAR 100 UNIT/ML IV ONE (18:52)
[2022-01-15] MEDS ORDERED: DEXTROSE 50% 25 GM/50 ML VIAL IV STA (18:52)
[2022-01-15] MEDS ORDERED: ALBUTEROL 2.5 MG/3 ML NEB RESP TX STA (18:52)
[2022-01-15] MEDS ORDERED: DEXTROSE 50% 25 GM/50 ML SYRINGE IV STA (18:55)
[2022-01-15] MEDS ORDERED: ONDANSETRON 4 MG/2 ML VIAL IV PRN (19:01)
[2022-01-15] MEDS ORDERED: GLUCAGON 1 MG VIAL IM PRN (19:01)
[2022-01-15] MEDS ORDERED: DEXTROSE 10% 250 ML BAG IV PRN (19:01)
[2022-01-15] MEDS ORDERED: HYDROmorphone 1 MG/1 ML SYRINGE IV PRN (19:01)
[2022-01-15] MEDS ORDERED: SODIUM POLYSTYRENE SULFATE 15 GM/60 ML BOTTLE PO STA (19:09)
[2022-01-16 09:22] LABS: Albumin 2.1 G/DL (3.4-5.0); Bilirubin,Direct 0.1 MG/DL (0.0-0.20); Bilirubin,Indirect 0.5 MG/DL (0.0-1.0); Bilirubin,Total 0.6 MG/DL (0.20-1.00); Total Protein 5.2 G/DL (6.4-8.2)
[2022-01-16] MEDS ORDERED: HEPARIN 10,000 UNIT/10 ML VIAL IV PRN (11:03)
[2022-01-16 13:12] LABS: Hepatitis B Core IgM Quant 0.14 Index; Hepatitis B Surface Ag Quant < 0.10 Index; Hepatitis B Surface Ag Result Non-Reactive (NonReactive); Hepatitis C Virus Ab Quant 0.03 Index; Hepatitis C Virus Ab Result Non-Reactive (NonReactive)
[2022-01-16] MEDS ORDERED: PRIMIDONE 250 MG TABLET PO SCH (15:00)
[2022-01-16] MEDS: INSULIN REGULAR 100 UNIT/ML SUBCUT SCH ×2 (17:22→19:30)
[2022-01-16] MEDS: PANTOPRAZOLE 40 MG TABLET PO SCH (17:22)
[2022-01-16] MEDS: ASPIRIN CHEW 81 MG TABLET PO SCH (17:23)
[2022-01-16] MEDS: SEVELAMER CARBONATE 800 MG TABLET PO SCH ×3 (17:23→17:27)
[2022-01-16] MEDS ORDERED: ATORVASTATIN 20 MG TABLET PO SCH (21:00)
[2022-01-16] MEDS: INSULIN GLARGINE 100 UNIT/ML SUBCUT SCH (21:13)
[2022-01-16] MEDS: ATORVASTATIN 20 MG TABLET PO SCH (21:14)
[2022-01-17] MEDS: LEVOTHYROXINE 200 MCG TABLET PO SCH (05:32)
[2022-01-17 06:50] LABS: Basophils # 0.1 10*3/uL (0.0-0.2); Basophils % 0.8 % (0.0-0.8); Eosinophils # 0.1 10*3/uL (0.0-0.87); Eosinophils % 1.2 % (0.00-10.9); Hematocrit 31.2 VOL% (35.7-47.0); Hemoglobin 9.9 GM/DL (12.0-16.0); Immature Granulocytes % 1.2 %; Lymphocytes # 1.3 10*3/uL (1.4-4.0); Lymphocytes % 14.8 % (21.3-54.2); Mean Corpuscular HGB Conc 31.7 GM/DL (32-36); Mean Corpuscular Volume 106.8 FL (87-102); Mean Platelet Volume 9.9 FL (9.6-12.0); Monocytes # 0.6 10*3/uL (0.11-0.8); Monocytes % 6.8 % (1.7-12.7); Neutrophils % 75.2 % (38.7-73.9); Platelet Count 327 T/CUMM (130-400); Red Blood Count 2.92 MC/CUMM (3.8-5.5); Red Cell Distribution Width 16.4 % (9.3-17.3); White Blood Count 8.7 T/CUMM (4-12)
[2022-01-17 07:11] LABS: Calcium 8.5 MG/DL (8.5-10.1); Osmolality,Calculated 295.3 MOS/KG (273-304); Potassium 5.4 MMOL/L (3.5-5.1)
[2022-01-17] MEDS: INSULIN REGULAR 100 UNIT/ML SUBCUT SCH ×2 (08:15→18:18)
[2022-01-17] MEDS: SEVELAMER CARBONATE 800 MG TABLET PO SCH ×3 (08:57→17:44)
[2022-01-17] MEDS: ASPIRIN CHEW 81 MG TABLET PO SCH (08:58)
[2022-01-17] MEDS: PANTOPRAZOLE 40 MG TABLET PO SCH (08:58)
[2022-01-17] MEDS: cefTRIAXone 1,000 MG in SODIUM CHLORIDE 0.9% 100 ML IV SCH (13:45)
[2022-01-17] MEDS: ATORVASTATIN 20 MG TABLET PO SCH (21:04)
[2022-01-17] MEDS: INSULIN GLARGINE 100 UNIT/ML SUBCUT SCH (21:27)
[2022-01-18 05:09] LABS: Basophils # 0.1 10*3/uL (0.0-0.2); Basophils % 0.9 % (0.0-0.8); Eosinophils # 0.2 10*3/uL (0.0-0.87); Eosinophils % 1.8 % (0.00-10.9); Hematocrit 30.4 VOL% (35.7-47.0); Hemoglobin 9.7 GM/DL (12.0-16.0); Immature Granulocytes % 1.2 %; Immature Granulocytes Absolute 0.11 #; Lymphocytes # 1.2 10*3/uL (1.4-4.0); Lymphocytes % 12.4 % (21.3-54.2); Mean Corpuscular HGB Conc 31.9 GM/DL (32-36); Mean Corpuscular Volume 106.7 FL (87-102); Mean Platelet Volume 10.2 FL (9.6-12.0); Monocytes # 0.5 10*3/uL (0.11-0.8); Monocytes % 5.5 % (1.7-12.7); Neutrophils % 78.2 % (38.7-73.9); Platelet Count 332 T/CUMM (130-400); Red Blood Count 2.85 MC/CUMM (3.8-5.5); Red Cell Distribution Width 16.1 % (9.3-17.3); White Blood Count 9.3 T/CUMM (4-12)
[2022-01-18 05:29] LABS: Albumin 2.2 G/DL (3.4-5.0); Bilirubin,Total 0.4 MG/DL (0.20-1.00); Calcium 8.3 MG/DL (8.5-10.1); Potassium 5.7 MMOL/L (3.5-5.1); Total Protein 5.4 G/DL (6.4-8.2)
[2022-01-18] MEDS: LEVOTHYROXINE 200 MCG TABLET PO SCH (07:07)
[2022-01-18] MEDS: SEVELAMER CARBONATE 800 MG TABLET PO SCH ×3 (08:20→16:55)
[2022-01-18] MEDS: INSULIN REGULAR 100 UNIT/ML SUBCUT SCH (08:35)
[2022-01-18] MEDS: ASPIRIN CHEW 81 MG TABLET PO SCH (09:36)
[2022-01-18] MEDS: PANTOPRAZOLE 40 MG TABLET PO SCH (09:37)
[2022-01-18] MEDS ORDERED: INSULIN LISPRO 100 UNIT/ML CONTDEVICE SCH (11:30)
[2022-01-18] MEDS ORDERED: GENTAMICIN INJ 80 MG/50 ML PREMIX IV SCH (13:30)
[2022-01-18] MEDS ORDERED: VANCOMYCIN INJ 1,000 MG in SODIUM CHLORIDE 0.9% 250 ML IV SCH (13:30)
[2022-01-18] MEDS: cefTRIAXone 1,000 MG in SODIUM CHLORIDE 0.9% 100 ML IV SCH (15:43)
[2022-01-18 16:19] VITALS: BP 111/42
== END 2022-01-18 17:11 | DRG 602 ==
LOC: N.ED 15:21 → N.5E 19:01
PROVIDERS: ADMIT Internal Medicine; ATTEND Internal Medicine

== ENCOUNTER 2022-03-05 11:34 | Inpatient (IN) ==
[2022-03-05] MEDS ORDERED: SODIUM CHLORIDE 0.9% IV ONE (12:28)
[2022-03-05] MEDS ORDERED: VANCOMYCIN IV ONE (12:28)
[2022-03-05 12:40] LABS: Basophils # 0.1 10*3/uL (0.0-0.2); Basophils % 0.9 % (0.0-0.8); Eosinophils # 0.2 10*3/uL (0.0-0.87); Eosinophils % 3.4 % (0.00-10.9); Hematocrit 35.9 VOL% (35.7-47.0); Hemoglobin 11.6 GM/DL (12.0-16.0); Immature Granulocytes % 0.9 %; Immature Granulocytes Absolute 0.05 #; Lymphocytes # 0.8 10*3/uL (1.4-4.0); Lymphocytes % 13.2 % (21.3-54.2); Mean Corpuscular HGB Conc 32.3 GM/DL (32-36); Mean Corpuscular Volume 111.8 FL (87-102); Mean Platelet Volume 10.8 FL (9.6-12.0); Monocytes % 18.3 % (1.7-12.7); Neutrophils % 63.3 % (38.7-73.9); Platelet Count 163 T/CUMM (130-400); Red Blood Count 3.21 MC/CUMM (3.8-5.5); White Blood Count 5.7 T/CUMM (4-12)
[2022-03-05 12:47] LABS: Osmolality,Calculated 288.4 MOS/KG (273-304)
[2022-03-05] MEDS ORDERED: VANCOMYCIN INJ 1,000 MG in SODIUM CHLORIDE 0.9% 250 ML IV ONE ×2 (13:00→13:30)
[2022-03-05 13:09] LABS: Eosinophils 2 % (0-10); Lymphocytes 9 % (20-55); Total Cells Counted 100
[2022-03-05 13:10] LABS: Hypochromia Slight; Microcytosis Slight
[2022-03-05 13:14] LABS: Platelet Estimate Normal
[2022-03-05] MEDS ORDERED: ONDANSETRON 4 MG/2 ML VIAL IV PRN (13:19)
[2022-03-05] MEDS ORDERED: DEXTROSE 10% 250 ML BAG IV PRN (13:19)
[2022-03-05] MEDS ORDERED: GLUCAGON 1 MG VIAL IM PRN (13:19)
[2022-03-05] MEDS: SODIUM CHLORIDE 0.45% 1,000 ML IV SCH (13:37)
[2022-03-05] MEDS: ENOXAPARIN 30 MG/0.3 ML SYRINGE SUBCUT SCH (13:37)
[2022-03-05 13:48] LABS: Sedimentation Rate-Westergren 59 MM/HR (0-30)
[2022-03-05] MEDS ORDERED: INSULIN LISPRO 100 UNIT/ML SUBCUT SCH (16:30)
[2022-03-05] MEDS: INSULIN LISPRO 100 UNIT/ML CONTDEVICE SCH ×2 (17:00→21:04)
[2022-03-05] MEDS: SEVELAMER CARBONATE 800 MG TABLET PO SCH (18:05)
[2022-03-05] MEDS: ATORVASTATIN 20 MG TABLET PO SCH (21:00)
[2022-03-05] MEDS: PRIMIDONE 250 MG TABLET PO SCH (21:00)
[2022-03-05] MEDS: BOSENTAN PO SCH (21:00)
[2022-03-05] MEDS: DOCUSATE SODIUM 100 MG CAPSULE PO SCH (21:00)
[2022-03-05] MEDS: ACETAMINOPHEN 325 MG TABLET PO PRN (21:03)
[2022-03-06] MEDS: ACETAMINOPHEN 325 MG TABLET PO PRN ×2 (02:06→22:28)
[2022-03-06 04:39] LABS: Basophils # 0.1 10*3/uL (0.0-0.2); Basophils % 1.3 % (0.0-0.8); Eosinophils # 0.1 10*3/uL (0.0-0.87); Hematocrit 35.3 VOL% (35.7-47.0); Hemoglobin 11.5 GM/DL (12.0-16.0); Immature Granulocytes % 1.3 %; Immature Granulocytes Absolute 0.06 #; Lymphocytes # 0.9 10*3/uL (1.4-4.0); Mean Corpuscular HGB Conc 32.6 GM/DL (32-36); Mean Corpuscular Volume 111.7 FL (87-102); Mean Platelet Volume 10.4 FL (9.6-12.0); Monocytes # 0.8 10*3/uL (0.11-0.8); Neutrophils % 57.4 % (38.7-73.9); Platelet Count 165 T/CUMM (130-400); Red Blood Count 3.16 MC/CUMM (3.8-5.5); Red Cell Distribution Width 16.8 % (9.3-17.3); White Blood Count 4.7 T/CUMM (4-12)
[2022-03-06 04:58] LABS: Albumin 2.8 G/DL (3.4-5.0); Bilirubin,Total 0.4 MG/DL (0.20-1.00); Calcium 8.4 MG/DL (8.5-10.1); Osmolality,Calculated 297.8 MOS/KG (273-304); Potassium 5.4 MMOL/L (3.5-5.1); Total Protein 5.6 G/DL (6.4-8.2)
[2022-03-06 05:04] LABS: Eosinophils 4 % (0-10); Lymphocytes 28 % (20-55); Macrocytosis 1+; Total Cells Counted 100
[2022-03-06] MEDS ORDERED: traMADol 50 MG TABLET PO PRN (05:24)
[2022-03-06] MEDS: LEVOTHYROXINE 200 MCG TABLET PO SCH (05:51)
[2022-03-06] MEDS: INSULIN LISPRO 100 UNIT/ML CONTDEVICE SCH ×4 (07:49→22:22)
[2022-03-06] MEDS: PANTOPRAZOLE 40 MG TABLET PO SCH (09:48)
[2022-03-06] MEDS: SEVELAMER CARBONATE 800 MG TABLET PO SCH ×3 (09:48→18:10)
[2022-03-06] MEDS: SODIUM ZIRCONIUM CYCLOSILICATE 10 GM PACK PO SCH (09:48)
[2022-03-06] MEDS: ASPIRIN EC 81 MG TABLET PO SCH (09:48)
[2022-03-06] MEDS: PRIMIDONE 250 MG TABLET PO SCH ×3 (09:48→22:21)
[2022-03-06] MEDS: DOCUSATE SODIUM 100 MG CAPSULE PO SCH ×2 (09:48→22:20)
[2022-03-06] MEDS: BOSENTAN PO SCH ×2 (09:49→22:28)
[2022-03-06] MEDS: ENOXAPARIN 30 MG/0.3 ML SYRINGE SUBCUT SCH (12:29)
[2022-03-06] MEDS: SODIUM CHLORIDE 0.45% 1,000 ML IV SCH (14:25)
[2022-03-06] MEDS ORDERED: HEPARIN 10,000 UNIT/10 ML VIAL IV SCH (15:45)
[2022-03-06] MEDS ORDERED: VANCOMYCIN INJ 500 MG in SODIUM CHLORIDE 0.9% 100 ML IV PRN (16:28)
[2022-03-06] MEDS ORDERED: VANCOMYCIN INJ 500 MG in SODIUM CHLORIDE 0.9% 100 ML IV ONE ×2 (18:00→23:00)
[2022-03-06] MEDS: PIPERACILLIN/TAZOBACTAM 3,375 MG in SODIUM CHLORIDE 0.9% 100 ML IV SCH (18:10)
[2022-03-06] MEDS: ATORVASTATIN 20 MG TABLET PO SCH (22:20)
[2022-03-07 05:26] LABS: Basophils # 0.1 10*3/uL (0.0-0.2); Basophils % 1.2 % (0.0-0.8); Eosinophils # 0.1 10*3/uL (0.0-0.87); Eosinophils % 2.7 % (0.00-10.9); Hematocrit 36.6 VOL% (35.7-47.0); Hemoglobin 11.6 GM/DL (12.0-16.0); Immature Granulocytes Absolute 0.04 #; Lymphocytes # 0.9 10*3/uL (1.4-4.0); Mean Corpuscular HGB Conc 31.7 GM/DL (32-36); Mean Corpuscular Volume 113.7 FL (87-102); Mean Platelet Volume 10.3 FL (9.6-12.0); Monocytes # 0.6 10*3/uL (0.11-0.8); Monocytes % 15.6 % (1.7-12.7); Neutrophils % 56.5 % (38.7-73.9); Platelet Count 190 T/CUMM (130-400); Red Blood Count 3.22 MC/CUMM (3.8-5.5); Red Cell Distribution Width 17.1 % (9.3-17.3); White Blood Count 4.1 T/CUMM (4-12)
[2022-03-07 05:55] LABS: Eosinophils 5 % (0-10); Lymphocytes 26 % (20-55); Platelet Estimate Adequate; Total Cells Counted 100
[2022-03-07] MEDS: PIPERACILLIN/TAZOBACTAM 3,375 MG in SODIUM CHLORIDE 0.9% 100 ML IV SCH ×2 (06:04→16:20)
[2022-03-07] MEDS: LEVOTHYROXINE 200 MCG TABLET PO SCH (06:05)
[2022-03-07 06:09] LABS: Alanine Aminotransferase 19 U/L (13-56); Albumin 2.9 G/DL (3.4-5.0); Alkaline Phosphatase 151 U/L (45-117); Aspartate Amino Transferase 17 U/L (0-37); Bilirubin,Total < 0.39 MG/DL (0.20-1.00); Blood Urea Nitrogen 50 MG/DL (7-18); Calcium 8.7 MG/DL (8.5-10.1); Carbon Dioxide 30 MMOL/L (21-32); Chloride 103 MMOL/L (98-107); Glucose 88 MG/DL (74-106); Osmolality,Calculated 288.5 MOS/KG (273-304); Potassium 4.6 MMOL/L (3.5-5.1); Sodium 139 MMOL/L (136-145); Total Protein 6.3 G/DL (6.4-8.2)
[2022-03-07] MEDS: INSULIN LISPRO 100 UNIT/ML CONTDEVICE SCH ×4 (08:26→21:22)
[2022-03-07] MEDS: PANTOPRAZOLE 40 MG TABLET PO SCH (09:38)
[2022-03-07] MEDS: ASPIRIN EC 81 MG TABLET PO SCH (09:38)
[2022-03-07] MEDS: DOCUSATE SODIUM 100 MG CAPSULE PO SCH ×3 (09:38→21:22)
[2022-03-07] MEDS: PRIMIDONE 250 MG TABLET PO SCH ×3 (09:39→21:22)
[2022-03-07] MEDS: SEVELAMER CARBONATE 800 MG TABLET PO SCH ×3 (09:39→16:19)
[2022-03-07] MEDS: SODIUM ZIRCONIUM CYCLOSILICATE 10 GM PACK PO SCH (09:40)
[2022-03-07] MEDS: BOSENTAN PO SCH ×2 (09:40→21:23)
[2022-03-07] MEDS: ENOXAPARIN 30 MG/0.3 ML SYRINGE SUBCUT SCH (12:43)
[2022-03-07] MEDS: ATORVASTATIN 20 MG TABLET PO SCH (21:22)
[2022-03-08] MEDS: LEVOTHYROXINE 200 MCG TABLET PO SCH (05:41)
[2022-03-08] MEDS: PIPERACILLIN/TAZOBACTAM 3,375 MG in SODIUM CHLORIDE 0.9% 100 ML IV SCH ×2 (05:41→17:12)
[2022-03-08] MEDS: ACETAMINOPHEN 325 MG TABLET PO PRN (06:22)
[2022-03-08] MEDS: INSULIN LISPRO 100 UNIT/ML CONTDEVICE SCH ×4 (07:41→21:43)
[2022-03-08] MEDS: SEVELAMER CARBONATE 800 MG TABLET PO SCH ×3 (07:42→17:12)
[2022-03-08] MEDS: SODIUM ZIRCONIUM CYCLOSILICATE 10 GM PACK PO SCH (08:03)
[2022-03-08] MEDS: PANTOPRAZOLE 40 MG TABLET PO SCH (08:03)
[2022-03-08] MEDS: ASPIRIN EC 81 MG TABLET PO SCH (08:03)
[2022-03-08] MEDS: BOSENTAN PO SCH ×2 (08:03→21:40)
[2022-03-08] MEDS: DOCUSATE SODIUM 100 MG CAPSULE PO SCH ×2 (08:03→21:41)
[2022-03-08] MEDS: PRIMIDONE 250 MG TABLET PO SCH ×3 (08:03→21:41)
[2022-03-08] MEDS ORDERED: VANCOMYCIN INJ 500 MG in SODIUM CHLORIDE 0.9% 100 ML IV ONE (17:00)
[2022-03-08] MEDS: ATORVASTATIN 20 MG TABLET PO SCH (21:40)
[2022-03-08] MEDS: ENOXAPARIN 30 MG/0.3 ML SYRINGE SUBCUT SCH (21:48)
[2022-03-09] MEDS: LEVOTHYROXINE 200 MCG TABLET PO SCH (05:32)
[2022-03-09] MEDS: PIPERACILLIN/TAZOBACTAM 3,375 MG in SODIUM CHLORIDE 0.9% 100 ML IV SCH ×2 (05:32→16:55)
[2022-03-09] MEDS: INSULIN LISPRO 100 UNIT/ML CONTDEVICE SCH ×4 (07:38→21:03)
[2022-03-09] MEDS: PANTOPRAZOLE 40 MG TABLET PO SCH (08:45)
[2022-03-09] MEDS: ASPIRIN EC 81 MG TABLET PO SCH (08:46)
[2022-03-09] MEDS: PRIMIDONE 250 MG TABLET PO SCH ×3 (08:46→21:01)
[2022-03-09] MEDS: SEVELAMER CARBONATE 800 MG TABLET PO SCH ×3 (08:46→16:05)
[2022-03-09] MEDS: SODIUM ZIRCONIUM CYCLOSILICATE 10 GM PACK PO SCH (08:47)
[2022-03-09] MEDS: DOCUSATE SODIUM 100 MG CAPSULE PO SCH ×2 (08:47→21:01)
[2022-03-09] MEDS: BOSENTAN PO SCH ×2 (08:50→21:02)
[2022-03-09] MEDS: ATORVASTATIN 20 MG TABLET PO SCH (21:01)
[2022-03-09] MEDS: ENOXAPARIN 30 MG/0.3 ML SYRINGE SUBCUT SCH (21:02)
[2022-03-10] MEDS: PIPERACILLIN/TAZOBACTAM 3,375 MG in SODIUM CHLORIDE 0.9% 100 ML IV SCH (05:57)
[2022-03-10] MEDS: LEVOTHYROXINE 200 MCG TABLET PO SCH (06:00)
[2022-03-10] MEDS: SEVELAMER CARBONATE 800 MG TABLET PO SCH ×2 (07:59→11:51)
[2022-03-10] MEDS: PRIMIDONE 250 MG TABLET PO SCH ×2 (09:16→15:48)
[2022-03-10] MEDS: ASPIRIN EC 81 MG TABLET PO SCH (09:16)
[2022-03-10] MEDS: PANTOPRAZOLE 40 MG TABLET PO SCH (09:16)
[2022-03-10] MEDS: BOSENTAN PO SCH (09:17)
[2022-03-10] MEDS: DOCUSATE SODIUM 100 MG CAPSULE PO SCH (09:18)
[2022-03-10] MEDS: INSULIN LISPRO 100 UNIT/ML CONTDEVICE SCH ×2 (09:20→12:30)
[2022-03-10] MEDS: SODIUM ZIRCONIUM CYCLOSILICATE 10 GM PACK PO SCH (10:37)
[2022-03-10] MEDS ORDERED: VANCOMYCIN INJ 500 MG in SODIUM CHLORIDE 0.9% 100 ML IV ONE (12:00)
[2022-03-10 12:03] VITALS: BP 152/45
== END 2022-03-10 17:57 | disposition home health service (06) | DRG 638 ==
LOC: N.ED 11:34 → N.5E 14:43
PROVIDERS: ADMIT Internal Medicine; ATTEND Internal Medicine